=== PATIENT | female | born 1945 | race Caucasian/White ===

== ENCOUNTER 2024-01-07 16:00 | Emergency (ER) | payer MEDICARE, SELFPAY ==
[2024-01-07 16:03] VITALS: BP 127/79
[2024-01-07 16:24] LABS: % Basophils 0.9 % (0-2); % Eosinophils 2.3 % (0-6); % Immature Granulocytes 0.5 % (0-0.5); % Lymphocytes 24.8 % (20.5-51.1); % Monocytes 6.6 % (1.7-9.3); % Neutrophils 64.9 % (42.2-75.2); Absolute Basophils 0.1 10^3/uL (0-0.2); Absolute Eosinophils 0.2 10^3/uL (0-0.7); Absolute Monocytes 0.5 10^3/uL (0.1-0.6); Absolute Neutrophils 5.2 10^3/uL (1.4-6.5); Hematocrit 38.2 % (37.0-47.0); Hemoglobin 13.6 g/dL (12.0-16.0); Mean Corp Hgb Conc. 35.6 g/dL (33.0-37.0); Mean Corpuscular Hgb 30.7 pg (27.0-31.0); Mean Corpuscular Volume 86.2 fL (81.0-99.0); Nucleated Red Blood Cells % 0 %; Red Blood Cell Count 4.43 10^6/uL (4.20-5.40); Red Cell Dist. Width 13.7 % (11.5-14.5)
[2024-01-07 16:52] LABS: ALT (SGPT) 25 U/L (0-35); AST (SGOT) 35 U/L (14-36); Albumin 3.8 g/dl (3.5-5.0); Alkaline Phosphatase 78 U/L (38-126); Blood Urea Nitrogen 12 mg/dl (7-17); Calcium 8.8 mg/dl (8.4-10.2); Carbon Dioxide 22 mmol/L (22-30); Chloride 108 mmol/L (98-107); Glucose 98 mg/dl (70-99); Potassium 3.8 mmol/L (3.5-5.1); Sodium 137 mmol/L (135-145); Total Bilirubin 0.7 mg/dl (0.2-1.3); Total Protein 6.5 g/dl (6.3-8.2); eGFR > 60.00
--- NOTE | 2024-01-07 17:09 | ED.GENMED ---
History of Present Illness
General
Chief Complaint: Headache
Time Seen by Provider: 01/07/24 16:52
Travel History
Have you had any contact with someone who has COVID-19?: No
Do you have any symptoms of coronavirus? Fever > 100 degrees, chills, cough, shortness of breath, sore throat, loss of taste or smell, muscle aches, or headache?: No
History of Present Illness
History of Present Illness:
78-year-old female with history of prior stroke, GERD, and cervical stenosis presents to the emergency department for evaluation of headache and neck pain ongoing for the past 2 weeks. She notes she has had a headache for 2 weeks and saw her
neurologist as an outpatient 4 days ago, was sent for an outpatient MRI that has not yet resulted. The following day she developed right-sided neck discomfort radiating down the right arm. States it is much worse than any prior arthritis that she
has ever had. Denies any recent neck trauma, chiropractic treatments, chest pain, or shortness of breath.
Past History
Past History
ED Past Medical History: CVA, Hypercholesterolemia, NIDDM, Psychiatric (Anxiety) and Other (Chronic back pain)
ED Past Surgical History: Appendectomy, Bowel resection, Brain (Meningioma with radiation), Cholecystectomy, Gynecological and Orthopedic
Social History
Tobacco: Non-smoker
Alcohol: Occasional
Drug: None
Personal:
Living: with family
Family History
Family History: Other (stroke in multiple family members)
Review of Systems
Review of Systems
Allergies reviewed?: Yes
All Other Systems: ROS reviewed and negative except as documented in HPI and ROS
Phy Exam
Physical Exam
Physical Exam:
GEN: Well appearing, NAD, WDWN
HEENT: Oral mucosa moist, no scleral icterus, no nasal congestion
Cardiac: Regular rate
Lung: No respiratory distress, no tachypnea
MSK: No gross deformity or injuries. Normal neck range of motion in all granados, exquisite tenderness to even light palpation of the right cervical paraspinous musculature, no rashes seen
Skin: Good color, no pallor or jaundice, no rashes
Neuro: AO x3; CN II-XII grossly intact. Right upper extremity strength 5 out of 5 in all granados, left upper extremity strength is 4 out of 5 in all granados, this is reportedly baseline for the patient for prior stroke. Bilateral lower extremity
strength and sensation is intact in all granados and symmetric
Psych: Calm, cooperative
Course
Orders/Labs/Results
Orders:
Orders
01/07/24 16:13
Complete Blood Count/With Diff Urgent
Comprehensive Metabolic Panel Urgent
01/07/24 17:01
Gabapentin [Neurontin] 100 mg PO NOW STA
Oxycodone [Roxicodone] 5 mg PO NOW STA
Abnormal Lab Results
01/07/24
16:13
Chloride 108 H mmol/L
(98-107)
01/07/24 16:13
01/07/24 16:13
Vital Signs
Initial and Last Documented VS:
Initial Vital Signs
Temp Pulse Resp BP Pulse Ox
97.9 F 59 16 127/79 97
01/07/24 16:03 01/07/24 16:03 01/07/24 16:03 01/07/24 16:03 01/07/24 16:03
Last Documented Vital Signs
Temp Pulse Resp BP Pulse Ox
97.9 F 55 18 141/81 99
01/07/24 16:03 01/07/24 17:40 01/07/24 17:40 01/07/24 17:40 01/07/24 17:40
MDM/Problems Addressed
MDM/Problems Addressed:
I was able to obtain the results of the patient's brain MRI that showed no acute findings compared to prior comparison MRIs from 2021 in 2014. Unfortunately no neck images were obtained. Patient's current presentation is consistent with cervical
radiculopathy. She has no acute neurologic deficits worrisome for spinal epidural abscess, epidural hematoma, and has no fevers or meningitic symptoms concerning for meningitis. At this time I do not feel there be any benefit to a CT of the
cervical spine given lack of suspicion for fracture. Does not meet emergent criteria for MRI. Recommend outpatient spine specialty follow-up. Her medication therapy is limited due to her intolerance to steroids and current use of antiplatelet
therapy thus we cannot prescribe NSAIDs, will prescribe opiates and gabapentin for pain relief
*Critical Care Note
Total Time (30-74mins, 75-104mins- exclusive of procedures): Not Applicable
ED Attending Note
-
Portions of this chart may have been created with voice recognition software.� Occasional wrong word or��sound alike� substitutions may have occurred due to the inherent limitations of voice recognition software.
Discharge Plan
Departure
Patient Disposition: Home (Routine Discharge)
Date of Disposition: 01/07/24
Time of Disposition: 18:45
Patient with high blood pressure during this ER visit?: No
Discharge Problem:
Cervical radiculopathy
Instructions: Radiculopathy (DC)
Prescriptions:
New
oxycodone 5 mg tablet
5 mg PO Q8H PRN (Reason: Pain) Qty: 10 0RF
gabapentin 300 mg capsule
300 mg PO TID PRN (Reason: pain) Qty: 30 0RF
No Action
clopidogrel [Plavix] 75 mg Tablet
75 mg PO DAILY
omeprazole 20 MG capsule,delayed release(DR/EC)
40 mg PO DAILY
citalopram 20 MG tablet
20 mg PO HS Qty: 90 0RF
acetaminophen [Tylenol Extra Strength] 500 MG tablet
1,000 mg PO Q6HPRN PRN (Reason: MILD PAIN) Qty: 100 0RF
atorvastatin 40 MG tablet
40 mg PO DAILY Qty: 90 0RF
lorazepam 1 MG tablet
1 mg PO HSPRN PRN (Reason: anxiety) 0RF
Referrals:
Neft,Vito E, MD [Family Provider] -
Activity Restrictions/Additional Instructions:
See your business account specialist
Interventions
Interventions:
*Risk Screen - Suicide Last Done: 01/07/24 16:03
*General Assessment Last Done: 01/07/24 16:03
*Neglect/Abuse Screening Last Done: 01/07/24 16:03
*ED COVID-19 Vaccine History Last Done: 01/07/24 16:03
ED- Neurological Assessment Last Done: 01/07/24 17:00
[2024-01-07] MEDS: NEURONTIN 100 MG PO (17:32)
[2024-01-07] MEDS: ROXICODONE 5 MG PO (17:33)
[2024-01-07 17:40] VITALS: BP 141/81
[2024-01-07 19:12] VITALS: BP 133/74
== END 2024-01-07 19:00 | disposition home or self-care (01) ==
LOC: EMR 16:00
PROVIDERS: EMERGENCY PHYSICIAN Emergency Medicine; FAMILY PHYSICIAN Family Medicine
DX: M54.12 Radiculopathy, cervical region (principal); K21.9 Gastro-esophageal reflux disease without esophagitis; E11.9 Type 2 diabetes mellitus without complications; E78.00 Pure hypercholesterolemia, unspecified; F41.9 Anxiety disorder, unspecified; G89.29 Other chronic pain; Z82.3 Family history of stroke; Z86.73 Personal history of transient ischemic attack (TIA), and cerebral infarction without residual deficits; Z90.49 Acquired absence of other specified parts of digestive tract
CPT/HCPCS: 99283; 80053; 85025

== ENCOUNTER → 2024-01-13 09:15 | Outpatient (REF) | payer MEDICARE, SELFPAY | LOC: RAD 09:15 | PROVIDERS: ATTENDING PHYSICIAN Internal Medicine Endocrinology, Diabetes & Metabolism; FAMILY PHYSICIAN Family Medicine | DX: M81.0 Age-related osteoporosis without current pathological fracture (principal) | CPT/HCPCS: 77080 ==

== ENCOUNTER → 2024-04-01 08:09 | Outpatient (REF) | payer MEDICARE, SELFPAY ==
[2024-04-01 10:20] LABS: Intact PTH 79.7 pg/ml (13.6-85.8)
[2024-04-01 11:33] LABS: ALT (SGPT) 26 U/L (0-35); AST (SGOT) 22 U/L (14-36); Albumin 3.6 g/dl (3.5-5.0); Alkaline Phosphatase 64 U/L (38-126); Blood Urea Nitrogen 12 mg/dl (7-17); Calcium 9.3 mg/dl (8.4-10.2); Carbon Dioxide 28 mmol/L (22-30); Chloride 108 mmol/L (98-107); Glucose 81 mg/dl (70-99); Potassium 3.8 mmol/L (3.5-5.1); Sodium 143 mmol/L (135-145); Total Bilirubin 0.6 mg/dl (0.2-1.3); Total Protein 6.1 g/dl (6.3-8.2); eGFR > 60.00
[2024-04-01 12:04] LABS: TSH 5.88 uIU/ml (0.47-4.68)
== END ==
LOC: REG 08:09
PROVIDERS: ATTENDING PHYSICIAN Internal Medicine Endocrinology, Diabetes & Metabolism; FAMILY PHYSICIAN Family Medicine
DX: E04.2 Nontoxic multinodular goiter (principal); M81.0 Age-related osteoporosis without current pathological fracture; R73.03 Prediabetes; E21.0 Primary hyperparathyroidism
CPT/HCPCS: 36415; 80053; 83036; 83970; 84443

== ENCOUNTER → 2024-06-20 11:24 | Outpatient (REF) | payer MEDICARE, SELFPAY | LOC: REG 11:24 | PROVIDERS: ATTENDING PHYSICIAN Internal Medicine Gastroenterology; FAMILY PHYSICIAN Family Medicine | DX: K58.2 Mixed irritable bowel syndrome (principal); R19.7 Diarrhea, unspecified | CPT/HCPCS: 83993; 87045; 87046; 87077; 87324; 87328; 87329; 87427; 87449 ==

== ENCOUNTER → 2024-06-22 09:30 | Outpatient (REF) | payer MEDICARE, SELFPAY | LOC: WDC 09:30 | PROVIDERS: ATTENDING PHYSICIAN Family Medicine | DX: R92.8 Other abnormal and inconclusive findings on diagnostic imaging of breast (principal); D49.0 Neoplasm of unspecified behavior of digestive system; N64.4 Mastodynia; N63.21 Unspecified lump in the left breast, upper outer quadrant | CPT/HCPCS: 76642; 77062; 77066 ==

== ENCOUNTER 2024-08-17 15:13 | Inpatient (IN) | payer MEDICARE, SELFPAY ==
[2024-08-17] VITALS (7 sets, daily range): BP systolic 115–158; BP diastolic 59–95; BMI 26.1
[2024-08-17] MEDS: PLAVIX 75 MG PO (13:51)
[2024-08-17] MEDS: ASPIRIN 325 MG PO (13:51)
[2024-08-17 13:54] LABS: % Basophils 0.3 % (0-2); % Eosinophils 1.2 % (0-6); % Immature Granulocytes 2.8 % (0-0.5); % Lymphocytes 21.3 % (20.5-51.1); % Monocytes 8.3 % (1.7-9.3); % Neutrophils 66.1 % (42.2-75.2); Absolute Eosinophils 0.1 10^3/uL (0-0.7); Absolute Immature Granulocytes 0.3 10^3/uL (0-0.05); Absolute Lymphocytes 2.4 10^3/uL (1.2-3.4); Absolute Monocytes 0.9 10^3/uL (0.1-0.6); Absolute Neutrophils 7.5 10^3/uL (1.4-6.5); Hematocrit 38.2 % (37.0-47.0); Hemoglobin 13.4 g/dL (12.0-16.0); Mean Corp Hgb Conc. 35.1 g/dL (33.0-37.0); Mean Corpuscular Hgb 30.6 pg (27.0-31.0); Mean Corpuscular Volume 87.2 fL (81.0-99.0); Mean Platelet Volume 10.3 fL (7.4-10.4); Nucleated Red Blood Cells % 0 %; Platelet Count 227 10^3/uL (130-400); Red Blood Cell Count 4.38 10^6/uL (4.20-5.40); Red Cell Dist. Width 12.5 % (11.5-14.5); White Blood Cell Count 11.3 10^3/uL (4.8-10.8)
--- NOTE | 2024-08-17 14:08 | ED.CVA ---
History of Present Illness
General
Chief Complaint: CVA/TIA Symptoms
Time Seen by Provider: 08/17/24 13:13
Onset of Stroke Symptoms
Onset of symptoms known: Yes
Date of onset of symptoms: 08/17/24
History of Present Illness
History of Present Illness:
79-year-old female with history of TIA/CVA, depression, anxiety, hyperlipidemia presenting to the emergency department for strokelike symptoms. Patient reports that around 1030 she started to feel warm. Her had left for an appointment and
then he received a call around noon that she was starting to have pain and numbness to the right side of her face, as well as sweating. Patient called the ambulance. On arrival to the hospital, was also reporting that she was having a difficult
time getting her words out. notes that this is sometimes an issue for the patient, has some cognitive problems, however this is worse than usual. Patient denies any weakness or numbness to lower extremities. Denies fever or recent
illness. Denies chest pain or difficulty breathing. Patient is on aspirin and Plavix, no additional blood thinners. No additional symptoms obtained at this time
Past History
Past History
ED Past Medical History: CVA, Hypercholesterolemia, NIDDM, Psychiatric (Anxiety) and Other (Chronic back pain)
ED Past Surgical History: Appendectomy, Bowel resection, Brain (Meningioma with radiation), Cholecystectomy, Gynecological and Orthopedic
Social History
Tobacco: Non-smoker
Alcohol: Occasional
Drug: None
Personal:
Living: with family
Family History
Family History: Other (stroke in multiple family members)
Phy Exam
Physical Exam
Physical Exam:
General: Well-appearing, no clinical signs of dehydration, nontoxic and in no acute distress
HEENT: protecting airway
Neck: appears supple
CV: Normal heart rate, regular rhythm, no evidence of cyanosis
Resp: No accessory muscle use, no increased work of breathing, lungs clear to auscultation bilaterally
Abd: No distention
Extremities: No deformities, no swelling, no erythema
Neuro: alert, slight diminished sensation to the right side of the face. Mild expressive aphasia. Otherwise no focal neurologic deficits.
: deferred
Rectal: deferred
Psych: Normal affect
Skin: Intact
Scores
NIH Stroke Score
Level of Consciousness: 0 - Alert
LOC Questions: 0-Answers both correctly
LOC Commands: 0-Performs both correctly
Best Horizontal Gaze: 0-Normal
Visual Trevino: 0=Normal, no visual loss
Facial Palsy: 0=Normal, symmetrical
Motor - Right Arm: 0=No drift 10 seconds
Motor - Left Arm: 0=No drift 10 seconds
Motor - Right Le-No drift 5 seconds
Motor - Left Le-No drift 5 seconds
Limb Ataxia: 0-Absent
Sensation: 1-Mild loss
Best Language: 1-Mild aphasia
Dysarthria: 0-Normal
Extinction and Inattention: 0-No abnormality
Total Score:: 2
Course
Orders/Labs/Results
Orders:
Orders
08/17/24 13:09
CT HEAD/NECK ANG STROKE ALERT Stat
Reason For Exam: expressive aphasia, numbness/tingling
08/17/24 13:14
CT HEAD STROKE ALERT W/o Cont Urgent
Reason For Exam: aphasia
08/17/24 13:15
Electrocardiogram (*1) Stat
Reason for Study: Other
Other Reason for Exam: neuro symptoms
EKG- Treatment ONCE
08/17/24 13:41
Complete Blood Count/With Diff Urgent
Comprehensive Metabolic Panel Urgent
PTT Urgent
Prothrombin Time Urgent
Troponin I Urgent
08/17/24 13:43
Aspirin 325 mg PO NOW STA
Clopidogrel Bisulfate [Plavix] 75 mg PO NOW STA
Abnormal Lab Results
08/17/24
13:41
WBC 11.3 H 10^3/uL
(4.8-10.8)
Abs Immat Gran (auto) 0.3 H 10^3/uL
(0-0.05)
Absolute Neuts (auto) 7.5 H 10^3/uL
(1.4-6.5)
Absolute Monos (auto) 0.9 H 10^3/uL
(0.1-0.6)
Immature Gran % 2.8 H %
(0-0.5)
08/17/24 13:41
Vital Signs
Initial and Last Documented VS:
Initial Vital Signs
Pulse Resp BP Pulse Ox
24 133/95 97
08/17/24 13:11 08/17/24 13:11 08/17/24 13:11 08/17/24 13:11
Last Documented Vital Signs
Pulse Resp BP Pulse Ox
63 24 133/95 97
08/17/24 13:11 08/17/24 13:11 08/17/24 13:11 08/17/24 13:11
MDM/Problems Addressed
MDM/Problems Addressed:
79-year-old female with history of TIA/CVA presenting for concern of strokelike symptoms, which started prior to arrival. Vital signs are normal.
On exam, patient is well-appearing, no acute distress. Patient immediately assessed upon arrival given presenting complaints, within window for tPA. Patient's NIH stroke scale is a 2 for some mild aphasia and slight decrease sensation to the right
side of the face. Stroke alert was called with plan for neurology assessment. Will obtain CT brain imaging
13:30 -CT brain is negative. Neurology at bedside, does not recommend TNK at this time. Plan for aspirin and Plavix and continued monitoring, MRI and continued stroke workup.
*Critical Care Note
Total Time (30-74mins, 75-104mins- exclusive of procedures): Not Applicable
ED Attending Note
-
Portions of this chart may have been created with voice recognition software.� Occasional wrong word or��sound alike� substitutions may have occurred due to the inherent limitations of voice recognition software.
Discharge Plan
Departure
Prescriptions:
No Action
clopidogrel [Plavix] 75 mg Tablet
75 mg PO DAILY
donepezil 10 mg tablet
10 mg PO DAILY
ciprofloxacin HCl 500 mg tablet
500 mg PO BID
Rx Instructions:
new Rx 08/12/24 x 7 days
omeprazole 40 mg capsule,delayed release(DR/EC)
40 mg PO DAILY
furosemide 20 mg tablet
20 mg PO BID
gabapentin 100 mg capsule
200 mg PO TID
lorazepam 1 mg tablet
1 mg PO BIDPRN PRN (Reason: anxiety)
Patient Comments:
08/17/24: filled #60 tabs on 07/30/24 at [facility]
cyclosporine [Restasis] 0.05 % dropperette
1 drp BOTH EYES BID
mesalamine 0.375 gram capsule,extended release 24hr
0.75 g PO DAILY
Patient Comments:
Prescription is for 4 capsules in the AM; pt reports taking 2 capsules in the AM daily
atorvastatin 40 MG tablet
40 mg PO DAILY
citalopram 20 MG tablet
20 mg PO HS
Referrals:
Vito Hill MD [Family Provider] -
Interventions
Interventions:
*Risk Screen - Suicide Last Done: 08/17/24 14:05
*General Assessment Last Done: 08/17/24 14:05
*Neglect/Abuse Screening Last Done: 08/17/24 14:05
ED- Fall Risk Assessment Last Done: 08/17/24 14:09
*ED COVID-19 Vaccine History Last Done: 08/17/24 14:05
ED- Pulmonary Assessment Last Done: 08/17/24 14:09
ED- Neurological Assessment Last Done: 08/17/24 13:33
ED- Cardiac Assessment Last Done: 08/17/24 14:09
ED Swallowing Screen Last Done: 08/17/24 14:09
Discharge Date and Time
Print Language: FRENCH
[2024-08-17 14:11] LABS: ALT (SGPT) 27 U/L (0-35); AST (SGOT) 22 U/L (14-36); Albumin 3.3 g/dl (3.5-5.0); Alkaline Phosphatase 67 U/L (38-126); Blood Urea Nitrogen 14 mg/dl (7-17); Calcium 8.9 mg/dl (8.4-10.2); Carbon Dioxide 22 mmol/L (22-30); Chloride 102 mmol/L (98-107); Glucose 89 mg/dl (70-99); Potassium 3.5 mmol/L (3.5-5.1); Sodium 135 mmol/L (135-145); Total Bilirubin 0.8 mg/dl (0.2-1.3); Total Protein 5.6 g/dl (6.3-8.2); eGFR > 60.00
[2024-08-17 14:17] LABS: Troponin I < 0.012 ng/ml
[2024-08-17 14:33] LABS: APTT 21.1 Sec (23.4-35.0); INR 1.07; PT 13.7 Sec (11.4-14.6)
--- NOTE | 2024-08-17 14:53 | HPS.HSE ---
Family Physician
-
Family Physician: Vito Hill
Chief Complaint
-
Speech difficulty this morning
History of Present Illness
79 years old female presented with history of speech difficulty. Patient described the episode as right-sided sensation of warm feeling with pain from the right forehead down to the right jaw and the right upper extremity. She felt anxious about
it but reported such feeling to the . That happened around 1030 this morning. The left for an appointment but later patient did not feel comfortable and called medical alert and her . Her left his appointment and
came back home when the EMS where they are. He noticed that his was having word finding difficulty. He followed the ambulance to the hospital, in the hospital he noticed her speech was worse. The warm feeling/sensation had resolved but
reported numbness on the right side of the jaw. In the ER, scan of the head and neck with contrast did not show acute findings. Patient was evaluated by neurologist and told the patient and that she might be having a mini stroke,
recommended dual antiplatelet therapy and MRI study.
Patient was feeling fine when she woke up this morning, at her baseline. reported that her speech difficulty was something abnormal and not her baseline. Patient has history of strokes in the past and follows with Dr. Tobias neurologist.
She has memory impairment and takes Aricept. She uses a walker at home. No history of headache, migraine, fever or loss of consciousness. No history of head trauma or fall. She takes Plavix daily.
Medical History
Past Medical History
Past Medical History: Reports Other (History of strokes, history of meningioma status postradiation, hyperlipidemia, atypical chest pain, vertigo, type 2 diabetes, osteoporosis.)
Past Surgical History: Reports Other (No recent major surgery)
Social History
Tobacco: Non-smoker
Alcohol: None
Drug: None
Personal:
Living: With Family
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
Family History
Family History: Not pertinent
Allergies / Home Medications
Allergies reflects when Allergies were last updated in [employer].
Home Medications with original date entered in [facility]
Allergy/Medication List:
Allergies
Allergy/AdvReac Type Severity Reaction Status Date / Time
hydromorphone HCl Allergy muscle Verified 08/17/24 17:30
[From Dilaudid] paralysis
Sulfa (Sulfonamide Allergy Hives Verified 08/17/24 17:30
Antibiotics)
sulfisoxazole Allergy Hives Verified 08/17/24 17:30
tizanidine Allergy hyperventil Verified 01/07/24 16:05
ating
steroids inhalers Allergy hypervenila Uncoded 08/17/24 17:30
te
Home Medications
clopidogrel 75 mg tablet (Plavix) 75 mg PO DAILY Blood Clot Prevention/Tx 01/10/23
atorvastatin 40 mg tablet 40 mg PO DAILY High Cholesterol 08/17/24
ciprofloxacin HCl 500 mg tablet 500 mg PO BID UTI 08/17/24
citalopram 20 mg tablet 20 mg PO HS depression/anxiety 08/17/24
cyclosporine 0.05 % eye drops in a dropperette (Restasis) 1 drp BOTH EYES BID dry eyes 08/17/24
donepezil 10 mg tablet 10 mg PO DAILY memory/cognition 08/17/24
furosemide 20 mg tablet 20 mg PO BID 08/17/24
gabapentin 100 mg capsule 200 mg PO TID Pain 08/17/24
lorazepam 1 mg tablet 1 mg PO BIDPRN PRN anxiety 08/17/24
mesalamine 0.375 gram capsule,extended release 24 hr 0.75 g PO DAILY GI issues 08/17/24
omeprazole 40 mg capsule,delayed release 40 mg PO DAILY Gastrointestinal Issue 08/17/24
Review of Systems
-
History Source: Patient
A 12 point ROS was completed and negative except as noted: Yes
Constitutional: Denies Fever or Chills
EENT: Denies Sore Throat
Respiratory: Denies Cough
Cardiac: Denies Chest Pain
Abdomen/GI: Denies Abdominal Pain
: Denies Dysuria or Difficulty Voiding
Musculoskeletal: Denies Joint Pain, Joint Swelling or Muscle Stiffness
Skin: Denies Itching
Neurological: Reports Numbness (right jaw); Denies Dizzy or Headache
Endocrine: Denies Temp Intolerance
Hematologic/Lymphatic: Denies Bruising
Psych: Denies Panic Disorder
Physical Exam
Vital Signs
Vital Signs
Temp Pulse Resp BP Pulse Ox
97.9 F 69 16 157/89 97
08/17/24 14:05 08/17/24 14:03 08/17/24 14:09 08/17/24 14:03 08/17/24 14:09
Physical Exam
General: No Apparent Distress and Comfortable
HEENT: Moist mucous membranes and Atraumatic
Respiratory: Clear
Cardiac: S1/S2 and Regular Rhythm
GI: Soft, Non Tender and Non Distended
Genito-urinary: No Cameron
Musculoskeletal: No Clubbing, No Cyanosis and No Edema
Neuro: Awake, Oriented, Slurred Speech (Word finding difficulty ) and Other (She )
Psych: Calm; No Agitated
Laboratory Results
-
08/17/24 13:41
08/17/24 13:41
Laboratory Results
PT 13.7 Sec (11.4-14.6) 08/17/24 13:41
INR 1.07 08/17/24 13:41
APTT 21.1 Sec (23.4-35.0) L 08/17/24 13:41
Total Bilirubin 0.8 mg/dl (0.2-1.3) 08/17/24 13:41
AST 22 U/L (14-36) 08/17/24 13:41
ALT 27 U/L (0-35) 08/17/24 13:41
Alkaline Phosphatase 67 U/L (38-126) 08/17/24 13:41
Troponin I < 0.012 ng/ml 08/17/24 13:41
Impression/Plan
-
79 years old female presented with word finding difficulty that started today. Patient was evaluated by neurologist and recommended dual antiplatelet therapy and stroke workup
# Expressive aphasia with right-sided sensory changes, differential diagnosis include stroke, neurodegenerative, others
Admit the patient to telemetry floor
Start the patient on NIHSS protocol with neurological checks per unit guidelines
Order MRI of the brain
Order echocardiogram of the heart
Check lipid panel
Avoid hypotension, permissive hypertension first 24 hours
DVT prophylaxis
Dual antiplatelet therapy with aspirin and Plavix
Follow-up with neurology recommendations
# History of cognitive impairment, continue with Aricept and home medications. Patient is pleasant and following commands. No agitation noted.
# Mild leukocytosis. No fever, could be reactive, monitor temperature curve repeat CBC
# DVT prophylaxis
Total time spent to see the patient on the floor, examine the patient, review data and lab results, discuss treatment plan with patient, ER doctor, nursing staff around 75 minutes
--- NOTE | 2024-08-17 15:05 | CON.NEURO4 ---
Documented by User: Susan Fuller NP 08/17/24 15:41
Consultation - Neurology 4
-
CONSULTING PHYSICIAN: Bennie Dent MD
REFERRING PHYSICIAN: ER/Kanika Nava
DICTATED BY: JACOBY Mayorga
DATE/TIME OF REQUEST: 08/17/24
DATE/TIME OF CONSULTATION: 08/17/24
Reason for Consultation: Stroke Alert
History of Present Illness:
This is a 79-year-old right-handed female who has presented to the hospital with report of expressive aphasia, R jaw/arm pain, R facial numbness, and transient anterior head pain starting at 1100 today. Patient has been previously evaluated by our
Neurology service on in 01/2021 for gait ataxia. She is followed as an outpatient by Neurology Dr. Tobias for cognitive impairment, headaches, and history of CVA and TIAs.
'From previous evaluation by Dr. Noyola on 01/16/21:
Patient presented to this hospital's emergency department due to new worsening of gait. She reported that she attempted to walk toward her bathroom this morning and instead of being able to walk forwards walk sideways. The patient also suggest that
she has been having gait difficulties since 2009 for which she's been followed by a local neurologist. Since 2012 the patient has been utilizing a cane for ambulation. Patient began wheelchair use for long-excursions began 6 years ago (2013). The
patient describes her usual gait as being off balance and in the past 14 days, has been walking into tolbert.
Patient was previously provided a diagnosis of 'ataxic gait,' received PT to treat, then stopped PT in 08/2020 due to the Pandemic.
Walker use suggested in fall 2019. Patient fell in 07/2020, went to local ([facility]. Was told she had 'small arteries.'
Patient does admit to episodic dizziness which at times is due to head turning, chronic in nature
'I'm supposed to down to [place] to meet with neurosurgery because two places the spine... is touching the cord...'
Neuropsychological testing was ordered by her local neurologist in 2018 which suggested mild cognitive impairment. Patient subsequently reports having mental decline in past few days in form of visual mis-recognition of snow on ground.
Additionally, the patient reports a long-standing tremor in bilateral hands which has been reducing her quality of life and affecting her ability to paint.'
Patient and her report that she woke up at 0800 today (08/17/24) in her usual state. Around 1030 she reports the she started to feel 'warm.' Around 1100 she notes that she developed a pain across the top of her head, and then in her right
jaw and right arm. Additionally her R face felt numb and she became diaphoretic. She called her at 1200 who noted her chronic word finding difficulty sounded worse than previous episodes, and he told her to call 911. CT Head, CTA head/neck
were obtained on arrival and are negative for any acute findings. NIHSS is 3 for mild aphasia, mild R face sensory loss, mild and sensory inattention. She was not deemed a candidate for IV TNK due to low NIHSS, benefits now outweighing risks. No LVO
for IAT. Patient is taking Plavix 75mg daily and denies missing any doses. Patient's notes that she has had similar episodes in the past but her symptoms were less severe. She currently denies any headache, dizziness, vision changes,
weakness, nausea, chest pain, palpitations, and shortness of breath.
Past Medical History: CVA in the past? No brain imaging at this facility that demonstrates this, multiple TIAs, cognitive impairment, meningioma, anxiety, depression, HLD, NIDDM, chronic back pain, GERD, cervical stenosis, headaches
Surgical History: C4-C6 posterior decompression/fusion 2020, appendectomy, bowel resection, meningioma radiation, cholecystectomy, gynecological and orthopedic
Family History: Sister- migraines, stroke. Paternal grandfather and aunt- stroke.
Social History: Denies illicit drug use. Occasional alcohol. Former smoker.
Allergies: Hydromorphone, sulfa, tizanidine, steroids.
Home Medications: See below.
Review of Symptoms:
Patient denies any fever, headache, chest pain, shortness of breath, GI or symptoms.
�Per the HPI.�All systems are reviewed negative except above.
Physical Exam:
The patient is afebrile, abdomen is nondistended, breathing is unlabored, skin is warm and dry, no edema. Patient very tearful, tremulous.
NIH Stroke Scale:
I performed the NIH stroke scale on the patient on 08/17/24 at 1330. The patient scored 3 points on the NIH stroke scale assessment, which were assigned as follows: See below.
Neurologic Examination:
The patient is awake, alert and oriented x 3, tearful. She is able to follow commands and answer questions appropriately. There is mild aphasia. No dysarthria. On cranial nerve assessment, pupils are 3 mm bilateral, round and reactive to light and
accommodation. Visual trevino are full. Extraocular movements are intact. Facial sensations are diminished on the right, there is no facial asymmetry. Hearing is intact bilaterally to normal conversation volume. Tongue palate and uvula are midline.
Sternocleidomastoid strengths are full bilaterally. Motor strengths are 5/5 bilateral upper and lower extremities on medical research Rincon scale. There is no drift or involuntary movement noted. Deep tendon reflexes are 2+ bilateral upper and
lower extremities and Babinski is absent bilaterally. There was sensory extinction noted on double simultaneous stimulation in the R face and arm. Coordination is intact by finger to nose bilaterally.
Lab Results: See below.
Neuro Imaging:
1. CT Head 08/17/24: No acute intracranial abnormalities. Findings compatible with diffuse cortical atrophy with nonspecific white matter changes as described above. ASPECTS score: 10.
2. CTA Head/Neck 08/17/24: Minor atherosclerotic plaque at the left carotid bifurcation. No hemodynamically significant carotid arterial stenosis bilaterally. No findings to suggest internal carotid artery or vertebral artery dissection bilaterally.
No significant proximal intracranial arterial stenosis.
Differentials for the patient's presentation include:
1. Expressive aphasia and right-sided sensory changes; etiology possible complicated migraine, vascular, vs neurodegenerative.
2. Cognitive impairment for 10+ years.
3. History of similar events with less severe symptoms.
Patient has the following risk factors for their symptoms: Hx TIA/CVA?, cognitive impairment, headache
IV Tenecteplase/IAT candidacy: She was not deemed a candidate for IV TNK due to low NIHSS, benefits now outweighing risks. No LVO for IAT.
Recommendations:
-Continue DAPT with aspirin 81mg and Plavix 75mg daily for 21 days.
-Goal normotension.
-MRI brain noncontrast pending.
-NIHSS and neurological checks per unit guidelines.
-Provide patient with a stroke education packet.
-LDL goal <70. Lipid panel pending. Continue home atorvastatin 40mg daily.
-Goal normoglycemia, hbA1c pending.
-PT/OT/ST evaluations.
-DVT prophylaxis.
-Needs outpatient neuropsychological testing.
-Will follow pending results.
Discussed patient care with: Dr. Dent, Dr. Boudreaux, patient, patient's spouse
Vital Signs and Labs
-
Vital Signs and Labs:
Vital Signs
Temp Pulse Resp BP Pulse Ox
97.9 F 64 15 146/77 97
08/17/24 14:05 08/17/24 15:00 08/17/24 15:00 08/17/24 15:00 08/17/24 15:00
Lab Results
08/17/24 13:41
08/17/24 13:41
PT 13.7 Sec (11.4-14.6) 08/17/24 13:41
INR 1.07 08/17/24 13:41
APTT 21.1 Sec (23.4-35.0) L 08/17/24 13:41
Sodium 135 mmol/L (135-145) 08/17/24 13:41
Potassium 3.5 mmol/L (3.5-5.1) 08/17/24 13:41
BUN 14 mg/dl (7-17) 08/17/24 13:41
Glucose 89 mg/dl (70-99) 08/17/24 13:41
Calcium 8.9 mg/dl (8.4-10.2) 08/17/24 13:41
Medications
-
Home Medications
�Medication �Instructions �Recorded
clopidogrel 75 mg tablet (Plavix) 75 mg PO DAILY Blood Clot 01/10/23
Prevention/Tx
atorvastatin 40 mg tablet 40 mg PO DAILY High Cholesterol 08/17/24
ciprofloxacin HCl 500 mg tablet 500 mg PO BID UTI 08/17/24
citalopram 20 mg tablet 20 mg PO HS depression/anxiety 08/17/24
cyclosporine 0.05 % eye drops in a 1 drp BOTH EYES BID dry eyes 08/17/24
dropperette (Restasis)
donepezil 10 mg tablet 10 mg PO DAILY memory/cognition 08/17/24
furosemide 20 mg tablet 20 mg PO BID 08/17/24
gabapentin 100 mg capsule 200 mg PO TID Pain 08/17/24
lorazepam 1 mg tablet 1 mg PO BIDPRN PRN anxiety 08/17/24
mesalamine 0.375 gram 0.75 g PO DAILY GI issues 08/17/24
capsule,extended release 24 hr
omeprazole 40 mg capsule,delayed 40 mg PO DAILY Gastrointestinal 08/17/24
release Issue
NIH Stroke Score
Subsequent NIH Scale
Date of Subsequent NIH Scale: 08/17/24
Time of Subsequent NIH Scale: 13:30
NIH Stroke Score
Level of Consciousness: 0 - Alert
LOC Questions: 0-Answers both correctly
LOC Commands: 0-Performs both correctly
Best Horizontal Gaze: 0-Normal
Visual Trevino: 0=Normal, no visual loss
Facial Palsy: 0=Normal, symmetrical
Motor - Right Arm: 0=No drift 10 seconds
Motor - Left Arm: 0=No drift 10 seconds
Motor - Right Le-No drift 5 seconds
Motor - Left Le-No drift 5 seconds
Limb Ataxia: 0-Absent
Sensation: 1-Mild loss
Best Language: 1-Mild aphasia
Dysarthria: 0-Normal
Extinction and Inattention: 1-Sensory inattention
Total Score:: 3

Documented by User: Bennie Dent MD 08/17/24 22:49
Consultation - Neurology 4
-
CONSULTING PHYSICIAN: Bennie Dent MD
REFERRING PHYSICIAN: ER/Kanika Nava
DICTATED BY: JACOBY Mayorga
DATE/TIME OF REQUEST: 08/17/24
DATE/TIME OF CONSULTATION: 08/17/24
Reason for Consultation: Stroke Alert
History of Present Illness:
This is a 79-year-old right-handed female who has presented to the hospital with report of expressive aphasia, R jaw/arm pain, R facial numbness, and transient anterior head pain starting at 1100 today. Patient has been previously evaluated by our
Neurology service on in 01/2021 for gait ataxia. She is followed as an outpatient by Neurology Dr. Tobias for cognitive impairment, headaches, and history of CVA and TIAs.
'From previous evaluation by Dr. Noyola on 01/16/21:
Patient presented to this hospital's emergency department due to new worsening of gait. She reported that she attempted to walk toward her bathroom this morning and instead of being able to walk forwards walk sideways. The patient also suggest that
she has been having gait difficulties since 2009 for which she's been followed by a local neurologist. Since 2012 the patient has been utilizing a cane for ambulation. Patient began wheelchair use for long-excursions began 6 years ago (2013). The
patient describes her usual gait as being off balance and in the past 14 days, has been walking into [place]lbert.
Patient was previously provided a diagnosis of 'ataxic gait,' received PT to treat, then stopped PT in 08/2020 due to the Pandemic.
Walker use suggested in fall 2019. Patient fell in 07/2020, went to local ([facility]. Was told she had 'small arteries.'
Patient does admit to episodic dizziness which at times is due to head turning, chronic in nature
'I'm supposed to down to [place] to meet with neurosurgery because two places the spine... is touching the cord...'
Neuropsychological testing was ordered by her local neurologist in 2018 which suggested mild cognitive impairment. Patient subsequently reports having mental decline in past few days in form of visual mis-recognition of snow on ground.
Additionally, the patient reports a long-standing tremor in bilateral hands which has been reducing her quality of life and affecting her ability to paint.'
Patient and her report that she woke up at 0800 today (08/17/24) in her usual state. Around 1030 she reports the she started to feel 'warm.' Around 1100 she notes that she developed a pain across the top of her head, and then in her right
jaw and right arm. Additionally her R face felt numb and she became diaphoretic. She called her at 1200 who noted her chronic word finding difficulty sounded worse than previous episodes, and he told her to call 911. CT Head, CTA head/neck
were obtained on arrival and are negative for any acute findings. NIHSS is 3 for mild aphasia, mild R face sensory loss, mild and sensory inattention. She was not deemed a candidate for IV TNK due to low NIHSS, benefits now outweighing risks. No LVO
for IAT. Patient is taking Plavix 75mg daily and denies missing any doses. Patient's notes that she has had similar episodes in the past but her symptoms were less severe. She currently denies any headache, dizziness, vision changes,
weakness, nausea, chest pain, palpitations, and shortness of breath.
Past Medical History: CVA , multiple TIAs, cognitive impairment, meningioma, anxiety, depression, HLD, NIDDM, chronic back pain, GERD, cervical stenosis, headaches
Surgical History: C4-C6 posterior decompression/fusion 2020, appendectomy, bowel resection, meningioma radiation, cholecystectomy, gynecological and orthopedic
Family History: Sister- migraines, stroke. Paternal grandfather and aunt- stroke.
Social History: Denies illicit drug use. Occasional alcohol. Former smoker.
Allergies: Hydromorphone, sulfa, tizanidine, steroids.
Home Medications: See below.
Review of Symptoms:
Patient denies any fever, headache, chest pain, shortness of breath, GI or symptoms.
�Per the HPI.�All systems are reviewed negative except above.
Physical Exam:
The patient is afebrile, abdomen is nondistended, breathing is unlabored, skin is warm and dry, no edema. Patient very tearful, tremulous.
NIH Stroke Scale:
I performed the NIH stroke scale on the patient on 08/17/24 at 1330. The patient scored 3 points on the NIH stroke scale assessment, which were assigned as follows: See below.
Neurologic Examination:
The patient is awake, alert and oriented x 3, tearful. She is able to follow commands and answer questions appropriately. There is mild aphasia. No dysarthria. On cranial nerve assessment, pupils are 3 mm bilateral, round and reactive to light and
accommodation. Visual trevino are full. Extraocular movements are intact. Facial sensations are diminished on the right, there is no facial asymmetry. Hearing is intact bilaterally to normal conversation volume. Tongue palate and uvula are midline.
Sternocleidomastoid strengths are full bilaterally. Motor strengths are 5/5 bilateral upper and lower extremities on medical research Rincon scale. There is no drift or involuntary movement noted. Deep tendon reflexes are 2+ bilateral upper and
lower extremities and Babinski is absent bilaterally. There was sensory extinction noted on double simultaneous stimulation in the R face and arm. Coordination is intact by finger to nose bilaterally.
Lab Results: See below.
Neuro Imaging:
1. CT Head 08/17/24: No acute intracranial abnormalities. Findings compatible with diffuse cortical atrophy with nonspecific white matter changes as described above. ASPECTS score: 10.
2. CTA Head/Neck 08/17/24: Minor atherosclerotic plaque at the left carotid bifurcation. No hemodynamically significant carotid arterial stenosis bilaterally. No findings to suggest internal carotid artery or vertebral artery dissection bilaterally.
No significant proximal intracranial arterial stenosis.
Differentials for the patient's presentation include:
1. Expressive aphasia and right-sided sensory changes; etiology possible complicated migraine, vascular, vs neurodegenerative.
2. Cognitive impairment for 10+ years.
3. History of similar events with less severe symptoms.
Patient has the following risk factors for their symptoms: Hx TIA/CVA?, cognitive impairment, headache
IV Tenecteplase/IAT candidacy: She was not deemed a candidate for IV TNK due to low NIHSS, benefits now outweighing risks. No LVO for IAT.
Recommendations:
-Continue DAPT with aspirin 81mg and Plavix 75mg daily for 21 days.
-Goal normotension.
-MRI brain noncontrast pending.
-NIHSS and neurological checks per unit guidelines.
-Provide patient with a stroke education packet.
-LDL goal <70. Lipid panel pending. Continue home atorvastatin 40mg daily.
-Goal normoglycemia, hbA1c pending.
-PT/OT/ST evaluations.
-DVT prophylaxis.
-Needs outpatient neuropsychological testing.
-Will follow pending results.
Discussed patient care with: Dr. Dent, Dr. Boudreaux, patient, patient's spouse
Neurology Attending Note:
CC: Speech impediment
HPI: 79 yr. 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
GERD, headaches who had been in her USOH this morning till 1030A when she experienced word finding issues facial numbness and left sided numbness. Symptoms varied in severity. She called 911 and informed them she was having difficulty speaking. Brianna
was transferred to ED. On evaluation her speech pattern was bizarre. No motor or sensory deficits.
Neuro exam: Pat is anxious alert oriented x 3. Speech is limited can follow commands. CN exam is Nonfocal. Motor exam: Minimal left sided weakness. Reflexes trace.
A/P: TIA
Anxiety attack
Keep MAP 100
Speech therapy
Avoid fluoroquinolones: Cipro
MRI head
Pat may be discharged home if medically stable in AM
NIH Stroke Score
NIH Stroke Score
Total Score:: 3
[2024-08-17 16:32] LABS: HDL Cholesterol 50 mg/dl; LDL Cholesterol, Calculated 50 mg/dl; Total Cholesterol 114 mg/dl (50-199); Triglyceride 71 mg/dl (10-149); Very Low Density Lipoprotein 14 mg/dl (0-30)
[2024-08-17 17:20] LABS: TSH Reflex To Free T4 3.81 uIU/ml (0.47-4.68)
[2024-08-17] MEDS: NEURONTIN 200 MG PO ×2 (19:16→22:27)
[2024-08-17] MEDS: LASIX 20 MG PO (19:16)
[2024-08-17 19:27] LABS: Folate 3.2 ng/ml (2.76-20); Vitamin B12 243 pg/ml (239-931)
[2024-08-17] MEDS: HEPARIN 5000 UNITS SC (19:59)
[2024-08-17] MEDS: RESTASIS 0.05% OPHTHALMIC EMULSION 1 DROPS BOTH EYES (19:59)
[2024-08-17] MEDS: CELEXA 20 MG PO (22:27)
[2024-08-18] VITALS (7 sets, daily range): BP systolic 102–130; BP diastolic 47–79; PULSE 62–65; O2SAT 95
--- NOTE | 2024-08-18 00:15 | PTCARENOTE ---
Pt ran call [facility] notifying staff of new onset headache and R sided facial pain. This RN was notified of change in status. Performed NIH increasing weakness on L upper and lower extremity. NIH changed from 3 to 5. Rapid and stroke alert called. Marge
JACOBY Nath at bedside and pt transported to CT.
[2024-08-18 00:16] LABS: Glucose - Point of Care 103 mg/dl (70-99)
--- NOTE | 2024-08-18 01:26 | W.PN.UPDATE ---
Update Note
Progress Note Update
Responded to a rapid response called by nursing due to NIH change of this patient. CT head per protocol done with no new findings. Neurology service updated by primary nurse and no new orders given.
[2024-08-18 07:57] LABS: Glycohemoglobin (HgbA1c) 5.8 % (4.0-5.6)
--- NOTE | 2024-08-18 08:34 | W.PN.HOSP.TC ---
Today's Communication/Plan
-
Ativan before sleep
Continue with dual antiplatelet therapy
Continue with heart monitoring
Held AM Lasix to avoid hypotension
Assessment / Plan
Assessment / Plan
Physical Exam
General: No Apparent Distress and Comfortable
HEENT: Moist mucous membranes and Atraumatic
Respiratory: Clear
Cardiac: S1/S2 and Regular Rhythm
GI: Soft, Non Tender and Non Distended
Genito-urinary: No Cameron
Musculoskeletal: No Clubbing, No Cyanosis and No Edema
Neuro: Awake, Oriented, Slurred Speech (Less Word finding difficulty ) .
Psych: Calm; No Agitated
79 years old female presented with word finding difficulty that started today. Patient was evaluated by neurologist and recommended dual antiplatelet therapy and stroke workup
# Expressive aphasia with right-sided sensory changes, differential diagnosis include stroke, neurodegenerative, others
Her speech feels better than yesterday, she reports resolution of face numbness. Per family: she is approaching her baseline, less words finding difficulty
MRI brain no acute stroke
Repeat CT study at night after night team noticed speech problems, showed no changes
Could be mini-stroke
I d/w Dr Bennie Dent, he felt it was unlikely CVA but wanted to c/w dual antiplt therapy to treat as TIA/Ministroke.
c/w Statin therapy
Avoid hypotension, permissive hypertension first 24 hours
DVT prophylaxis
LDL 50
Follow-up with neurology recommendations
# Runs of Atrial tachycardia
I reviewed rhythm with two vegetable washing machine operator, not A fib
Pt feels palpitations but they are short runs and infrequent. Pt reports Hx of bradycardia in past, will avoid BB, she will f/w Dr Don, I will heart monitoring for total 48 hours.
# Mild essential hypertension, will continue low-dose Lasix with holding parameters
# History of cognitive impairment, continue with Aricept and home medications. Patient is pleasant and following commands. No agitation noted.
# History of insomnia and anxiety. Patient wanted Ativan before sleep, will make changes
# Mild leukocytosis. No fever, could be reactive, monitor temperature curve repeat CBC
# DVT prophylaxis
Total time spent to see the patient on the floor, examine the patient, review data and lab results, discuss treatment plan with patient, neurologist, nursing staff around 55 minutes
Anticipated Discharge: Within 24 hours
Subjective/Interval History
-
Date of Service: August 18, 2024
No sob
No headache
No chest pain
Less trouble talking today
Objective Data
-
Vital Signs:
Vital Signs
Temp Pulse Resp BP Pulse Ox
98.0 F 59 17 108/60 94
08/18/24 07:40 08/18/24 07:40 08/18/24 07:40 08/18/24 07:40 08/18/24 07:40
I&O
08/17/24 08/18/24 08/19/24
06:59 06:59 06:59
Intake Total 240 / 240
Balance 240 / 240
[2024-08-18] MEDS: PENTASA 750 MG PO (09:07)
[2024-08-18] MEDS: NEURONTIN 200 MG PO ×3 (09:07→21:35)
[2024-08-18] MEDS: ARICEPT 10 MG PO (09:07)
[2024-08-18] MEDS: PLAVIX 75 MG PO (09:07)
[2024-08-18] MEDS: PROTONIX 40 MG PO (09:07)
[2024-08-18] MEDS: LOW STRENGTH ASPIRIN 81 MG PO (09:08)
[2024-08-18] MEDS: LIPITOR 40 MG PO (09:08)
[2024-08-18] MEDS: RESTASIS 0.05% OPHTHALMIC EMULSION 1 DROPS BOTH EYES ×2 (09:08→21:34)
[2024-08-18] MEDS: HEPARIN 5000 UNITS SC ×2 (09:08→21:34)
[2024-08-18] MEDS: LASIX PO (10:48)
--- NOTE | 2024-08-18 11:18 | PTOTSP ---
ST Acute Care Evaluations
Baseline Information (Patient, , Daughter):
- Pt was diagnosed with a mild neurocognitive impairment in 2018. She is re-evaluated by a neuropsychologist yearly. As of this year, she is still in the mild range, but her family perceives her condition as having progressed. As of more recently,
the progression of her illness has reportedly slowed since the start of the Aricept. Pt's cognitive linguistic presentation (i.e., word finding issues) wax and wane on a day to day basis.
- Pt does not drive, per neurologist recommendations.
- Pt goes grocery shopping independently.
- Pt will occasionally bake independently.
- Pt manages her own medications independently but needs frequent reminders to take them.
- All major cooking and finances managed by .
- All major cleaning managed by recorder helper seismograph.
- Pt admits she has a hearing impairment and was recommended for hearing aids but has not pursued them.
- Pt wears bifocals.
- Pt has no hx of LEGAL MANAGER services.
- Per pt's family, at baseline, pt's speech is usually clear, intelligible, and perhaps a slight slower than others with occasional pauses/breaks due to gathering thoughts or word-finding difficulties (no groping, though).
- Per pt's family, at baseline, pt often needs complex information repeated, simplified, or rephrased, and will sometimes admit, 'I'm a little mixed up right now' (e.g. at the store, at the doctor). Pt needs information told to her one thing at a
time, otherwise she has a hard time with recall of that information.
- Per pt's family, at baseline, pt is able to express almost everything she wants to say with the exception of occasional word-finding difficutlies. Pt becomes frustrated during these instances.
- Per pt's family, at baseline, pt occasionally exhibits some impaired judgment and reduced filter with regards to what she says to others.
- Per pt's family, pt's communication was significantly impaired yesterday, has slightly improved today, but is no where near her baseline.
Findings:
Pt currently presents with clinical signs of mild pharyngeal dysphagia characterized by occasional cough following ingestion of liquids.
Pt also currently presents with a moderately-severe receptive and expressive language deficit as well as moderate motor speech impairment (apraxia vs neurogenic fluency disorder), which are distinctly different from pt's baseline mild cognitive
impairment.
Recommendations:
- Continue with regular solids, thin liquids, meds as tolerated.
- General aspiration precautions.
- LEGAL MANAGER to f/u re: diet tolerance and to determine if pt would benefit from an instrumental swallow study.
- LEGAL MANAGER to f/u to continue to evaluate and tx pt's receptive and expressive language deficits as well as motor speech deficits.
- Pt would continue to benefit from LEGAL MANAGER services upon d/c at the home health or OP level of care.
--- NOTE | 2024-08-18 11:27 | W.PN.NEURO.1 ---
Today's Communication / Plan
-
Dual antiplatelet
Ativan 1 mg BID
Neuro Assessment/Plan
Assessment
Mrs Abreu has speech impediment with no evidence of acute disease on MRI
Plan
Continue dual antiplatelet therapy
Ativan 1 mg BID
Subjective/Objective
Subjective Data
Date of Service: August 18, 2024
Brianna continues to have speech hesistancy
Objective Data
Vital Signs
Temp Pulse Resp BP Pulse Ox
36.8 C 64 17 115/60 95
08/18/24 11:10 08/18/24 11:10 08/18/24 11:10 08/18/24 11:10 08/18/24 11:10
Lab Results
08/17/24 13:41
08/17/24 13:41
PT 13.7 Sec (11.4-14.6) 08/17/24 13:41
INR 1.07 08/17/24 13:41
APTT 21.1 Sec (23.4-35.0) L 08/17/24 13:41
Sodium 135 mmol/L (135-145) 08/17/24 13:41
Potassium 3.5 mmol/L (3.5-5.1) 08/17/24 13:41
BUN 14 mg/dl (7-17) 08/17/24 13:41
Glucose 89 mg/dl (70-99) 08/17/24 13:41
Calcium 8.9 mg/dl (8.4-10.2) 08/17/24 13:41
LDL Cholesterol, Calc 50 mg/dl 08/17/24 13:41
Vitamin B12 Cancelled 08/17/24 22:45
Patient Allergies
ciprofloxacin Allergy (Intermediate, Verified 08/18/24 11:27)
Unknown
hydromorphone HCl [From Dilaudid] Allergy (Verified 08/17/24 17:30)
muscle paralysis
Sulfa (Sulfonamide Antibiotics) Allergy (Verified 08/17/24 17:30)
Hives
sulfisoxazole Allergy (Verified 08/17/24 17:30)
Hives
tizanidine Allergy (Verified 01/07/24 16:05)
hyperventilating
steroids inhalers Allergy (Uncoded 08/17/24 17:30)
hypervenilate
Data Reviewed
-
MRI Head: Image Reviewed (MRI Brain: No acute infarctions. Chronic small vessel disease)
[2024-08-18] MEDS: LASIX 20 MG PO (17:08)
[2024-08-18] MEDS: CELEXA 20 MG PO (21:35)
[2024-08-18] MEDS: ATIVAN 1 MG PO (21:35)
[2024-08-19 04:06] VITALS: BP 100/47
--- NOTE | 2024-08-19 04:46 | DOWNTIME ---
There was a [email or web address] Textbook Time Client [employer] Downtime on 08/19/2024 from 0100 to 08/19/2024 at 0355. Downtime documentation of patient's care, including medication administrations, has been reconciled in the electronic record per guidelines. Refer to the
patient's paper chart under the miscellaneous tab to see printed paper medication records and downtime forms.
[2024-08-19 07:01] LABS: Hematocrit 42.2 % (37.0-47.0); Hemoglobin 14.6 g/dL (12.0-16.0); Mean Corp Hgb Conc. 34.6 g/dL (33.0-37.0); Mean Corpuscular Hgb 31.6 pg (27.0-31.0); Mean Corpuscular Volume 91.3 fL (81.0-99.0); Mean Platelet Volume 10.3 fL (7.4-10.4); Platelet Count 211 10^3/uL (130-400); Red Blood Cell Count 4.62 10^6/uL (4.20-5.40); Red Cell Dist. Width 12.9 % (11.5-14.5); White Blood Cell Count 9.3 10^3/uL (4.8-10.8)
[2024-08-19 07:29] LABS: Blood Urea Nitrogen 22 mg/dl (7-17); Calcium 8.9 mg/dl (8.4-10.2); Carbon Dioxide 29 mmol/L (22-30); Chloride 103 mmol/L (98-107); Estimated Creatinine Clearance 47 ml/min; Glucose 99 mg/dl (70-99); Sodium 141 mmol/L (135-145); eGFR > 60.00
[2024-08-19] MEDS: PENTASA 750 MG PO (08:13)
[2024-08-19] MEDS: ARICEPT 10 MG PO (08:14)
[2024-08-19] MEDS: LIPITOR 40 MG PO (08:14)
[2024-08-19] MEDS: RESTASIS 0.05% OPHTHALMIC EMULSION 1 DROPS BOTH EYES (08:14)
[2024-08-19] MEDS: NEURONTIN 200 MG PO (08:15)
[2024-08-19] MEDS: PLAVIX 75 MG PO (08:15)
[2024-08-19] MEDS: LOW STRENGTH ASPIRIN 81 MG PO (08:15)
[2024-08-19] MEDS: HEPARIN 5000 UNITS SC (08:18)
[2024-08-19] MEDS: PROTONIX 40 MG PO (08:18)
[2024-08-19] MEDS: LASIX PO (08:19)
[2024-08-19 08:21] VITALS: BP 102/55
[2024-08-19 10:41] VITALS: BP 114/64
--- NOTE | 2024-08-19 10:44 | W.PN.HOSP.TC ---
Today's Communication/Plan
-
DC today
Assessment / Plan
Assessment / Plan
Physical Exam
General: No Apparent Distress and Comfortable
HEENT: Moist mucous membranes and Atraumatic
Respiratory: Clear
Cardiac: S1/S2 and Regular Rhythm
GI: Soft, Non Tender and Non Distended
Genito-urinary: No Cameron
Musculoskeletal: No Clubbing, No Cyanosis and No Edema
Neuro: Awake, Oriented, no Slurred Speech (speech back to baseline ) .
Psych: Calm; No Agitated
79 years old female presented with word finding difficulty that started today. Patient was evaluated by neurologist and recommended dual antiplatelet therapy and stroke workup
# Expressive aphasia with right-sided sensory changes, differential diagnosis include stroke, neurodegenerative, others
Her speech feels better than yesterday, she reports resolution of face numbness. Per family: she is approaching her baseline, less words finding difficulty
MRI brain no acute stroke
Repeat CT study at night after night team noticed speech problems, showed no changes
Could be mini-stroke
I d/w Dr Bennie Dent, he felt it was unlikely CVA but wanted to c/w dual antiplt therapy to treat as TIA/Ministroke.
c/w Statin therapy
Avoid hypotension, permissive hypertension first 24 hours
DVT prophylaxis
LDL 50
Follow-up with neurology recommendations
I also updated he neurologist directly on phone Dr Christiano Tobias.
# Runs of Atrial tachycardia
Echo and EKG looked normal.
I reviewed rhythm with two social work coordinator, not A fib
Pt feels palpitations but they are short runs and infrequent. Pt reports Hx of bradycardia in past, will avoid BB due to low hooper rate ( 48-60) , she will f/w Dr Don, I also updated Dr Don.
# Mild essential hypertension, continue low-dose Lasix.
# History of cognitive impairment, continue with Aricept and home medications. Patient is pleasant and following commands. No agitation noted.
# History of insomnia and anxiety. Patient wanted Ativan before sleep, will make changes
# Mild leukocytosis. No fever, could be reactive, monitor temperature curve repeat CBC
# DVT prophylaxis
Total discharge time spent to see the patient on the floor, examine the patient, review data and lab results, discuss discharge plan with patient and her , Dr Dent, her primary social work coordinator and neurologist, nursing staff around 67 minutes
Anticipated Discharge: Today
Subjective/Interval History
-
Date of Service: August 19, 2024
No headache
No sob
No chest pain
Objective Data
-
Labs:
Laboratory Results
08/19/24
06:51
WBC 9.3
Hgb 14.6
Hct 42.2
Plt Count 211
Sodium 141
Potassium 4.0
Chloride 103
Carbon Dioxide 29
BUN 22 H
Creatinine 0.8
Glucose 99
Calcium 8.9
Vital Signs:
Vital Signs
Temp Pulse Resp BP Pulse Ox
98.3 F 68 18 114/64 99
08/19/24 10:41 08/19/24 10:41 08/19/24 10:41 08/19/24 10:41 08/19/24 10:41
I&O
08/18/24 08/19/24 08/20/24
06:59 06:59 06:59
Intake Total 240 / 240 600 / 600
Balance 240 / 240 600 / 600
--- NOTE | 2024-08-19 13:01 | W.DCSUMMARY ---
Discharge Summary
Discharge Data
Date of Admission: 08/17/24
Date of Discharge: 08/19/24
-
Pending Results: No
Hospital Course
79 years old female presented with sudden onset of right-sided numbness and altered sensation from her head that went down to right upper extremity followed by word finding difficulty that progressed to dysarthria over few hours time. She presented
to the hospital. Initial CT study with contrast did not show acute stroke. Patient was taking Plavix at home. Patient was evaluated by neurologist. Did not recommend TNK, recommended dual antiplatelet therapy and MRI study. MRI of the brain did
not show acute stroke. Speech started to improve gradually and returned to baseline per patient and her family. LDL was 50. Patient was maintained on statin therapy. She was allowed to have permissive hypertension for 24 hours. Patient was
evaluated by speech/PT/OT. Recommended outpatient therapy. Cardiac monitoring revealed in the frequent episodes of atrial tachycardia. Patient reported palpitation feeling at times. She did not have hypotension. Echocardiogram showed normal
left ventricular function LVEF 55-60% with mild TR,MR. EKG showed normal sinus rhythm. Neurologist Dr. Dent felt that episode could be anxiety related and unlikely CVA and recommended dual antiplatelet therapy. Discussed options with the family
and the patient and recommended to follow-up with her primary neurologist. Primary neurologist Dr. Christiano Tobias was updated over the phone. Patient follows with Dr. Don for cardiology. He was also updated. Patient was advised to call cardiology
and neurology offices for appointments. Patient remained hemodynamically stable and was discharged in a stable condition.
Discharge Plan
-
Patient Disposition: Home with Home Care
Discharge Diagnosis/Procedures: Transiet word finding difficulty/ dysarthria with right sided facial numbness, likely consistent with transient ischemic attack/mini stroke. Imaging study did not show stroke. Your speech improved. Continue with
physical therapy and speech therapy.
Take aspirin and Plavix for 3 weeks. Take aspirin during lunchtime.
-You were noticed to have infrequent episodes of atrial tachycardia with no hypotension. Please follow-up with your magnetizer.
Diet: As tolerated and Low Fat
Referrals:
Martell Don DO [Active] - in two to three weeks
Christiano Tobias MD [Active] - in one to two weeks
Vito Hill MD [Family Provider] -
Prescriptions:
New
aspirin 81 mg Tablet,Chewable
81 mg PO DAILY Qty: 21 0RF
Continued
clopidogrel [Plavix] 75 mg Tablet
75 mg PO DAILY
donepezil 10 mg tablet
10 mg PO DAILY
omeprazole 40 mg capsule,delayed release(DR/EC)
40 mg PO DAILY
furosemide 20 mg tablet
20 mg PO BID
gabapentin 100 mg capsule
200 mg PO TID
lorazepam 1 mg tablet
1 mg PO BIDPRN PRN (Reason: anxiety)
Patient Comments:
08/17/24: filled #60 tabs on 07/30/24 at [facility]
cyclosporine [Restasis] 0.05 % dropperette
1 drp BOTH EYES BID
mesalamine 0.375 gram capsule,extended release 24hr
0.75 g PO DAILY
Patient Comments:
Prescription is for 4 capsules in the AM; pt reports taking 2 capsules in the AM daily
atorvastatin 40 MG tablet
40 mg PO DAILY
citalopram 20 MG tablet
20 mg PO HS
Discontinued
ciprofloxacin HCl 500 mg tablet
500 mg PO BID
Rx Instructions:
new Rx 08/12/24 x 7 days
Discharge Orders:
Discharge Patient (As Directed); Ordered 08/19/24
Ordered By: Yocasta Gill
Discharge Date and Time
Print Language: TAMAZIGHT
--- NOTE | 2024-08-19 13:16 | CM ---
Reviewed chart, met with patient to obtain information for assessment. Patient's spouse was at bedside. Patient stated that she lives alone in a townhouse with one step to enter. Patient described herself as independent with her ADLs, dressing,
bathing and personal care. 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 She also has a woman who comes in 1x a month to clean. Patient's spouse drives and can get patient to her appointments and shopping.
Patient has a w/c, walker, cane, toilet rails and a grab bar in her shower.
Patient's spouse works department of sociology chair but is home with patient in the mornings and evenings. She has a personal emergency response system as well.
She has been to [facility] in the past but not SNF.
She has had [facility] but is not sure of the agency.
Patient feels that she will be able to return home when cleared for discharge.
Plan: Case management will continue to follow and assist with discharge planning. Home when stable.
== END 2024-08-19 13:54 | disposition home health service (06) | DRG 92 ==
LOC: 3 WEST ACU 15:13
PROVIDERS: ADMITTING PHYSICIAN Internal Medicine; EMERGENCY PHYSICIAN Student in an Organized Health Care Education/Training Program; FAMILY PHYSICIAN Family Medicine; OTHER PHYSICIAN Psychiatry & Neurology Neurology
DX: R47.01 Aphasia (principal); I47.19 Other supraventricular tachycardia; I10 Essential (primary) hypertension; E11.9 Type 2 diabetes mellitus without complications
CPT/HCPCS: 70450; 70496; 70498; 70551; 80048; 80053; 80061; 82607; 82728; 82746; 82962; 83036; 84443; 84484; 85025; 85027; 85610; 85730; 92523; 92610; 93005; 93306; 97163; 97167; 99285; Q9967

== ENCOUNTER → 2024-08-28 08:49 | Outpatient (REF) | payer MEDICARE, SELFPAY | LOC: MRI 08:49 | PROVIDERS: ATTENDING PHYSICIAN Specialist; FAMILY PHYSICIAN Family Medicine | DX: I63.9 Cerebral infarction, unspecified (principal); R47.01 Aphasia; G45.9 Transient cerebral ischemic attack, unspecified | CPT/HCPCS: 70544; 70549; 70551; A9585 ==

== ENCOUNTER 2024-09-02 08:00 | Outpatient (RCR) | payer MEDICARE, SELFPAY | END 2024-09-02 23:59 | disposition home or self-care (01) | LOC: RPT 08:00 | PROVIDERS: ATTENDING PHYSICIAN Family Medicine | DX: I69.398 Other sequelae of cerebral infarction (principal); I69.322 Dysarthria following cerebral infarction (principal); R53.1 Weakness; R47.89 Other speech disturbances; R42 Dizziness and giddiness | CPT/HCPCS: 92523; 97163; 97167 ==

== ENCOUNTER → 2024-09-17 07:51 | Outpatient (REF) | payer MEDICARE, SELFPAY | LOC: RAD 07:51 | PROVIDERS: ATTENDING PHYSICIAN Family Medicine | DX: R60.0 Localized edema (principal); I87.2 Venous insufficiency (chronic) (peripheral) | CPT/HCPCS: 93970 ==

== ENCOUNTER 2024-10-02 08:08 | Outpatient (RCR) | payer MEDICARE, SELFPAY | END 2024-10-02 23:59 | disposition home or self-care (01) | LOC: RPT 08:08 | PROVIDERS: ATTENDING PHYSICIAN Family Medicine | DX: I69.351 Hemiplegia and hemiparesis following cerebral infarction affecting right dominant side (principal); I69.322 Dysarthria following cerebral infarction; R53.1 Weakness; R26.81 Unsteadiness on feet | CPT/HCPCS: 97110; 97112; 97116; 97530; 97535 ==

== ENCOUNTER 2024-10-23 09:07 | Outpatient (RCR) | payer MEDICARE, SELFPAY | END 2024-10-23 10:10 | disposition home or self-care (01) | LOC: RPT 09:07 | PROVIDERS: ATTENDING PHYSICIAN Family Medicine | DX: I69.351 Hemiplegia and hemiparesis following cerebral infarction affecting right dominant side (principal); I69.398 Other sequelae of cerebral infarction (principal); I69.322 Dysarthria following cerebral infarction; Z73.6 Limitation of activities due to disability; R53.1 Weakness; R26.81 Unsteadiness on feet | CPT/HCPCS: 97110; 97112; 97116; 97530 ==

== ENCOUNTER → 2024-10-30 11:58 | Outpatient (REF) | payer MEDICARE, SELFPAY ==
[2024-10-30 13:46] LABS: Glycohemoglobin (HgbA1c) 5.9 % (4.0-5.6)
[2024-10-30 14:50] LABS: ALT (SGPT) 27 U/L (0-35); AST (SGOT) 22 U/L (14-36); Albumin 4.4 g/dl (3.5-5.0); Alkaline Phosphatase 79 U/L (38-126); Blood Urea Nitrogen 14 mg/dl (7-17); Calcium 9.4 mg/dl (8.4-10.2); Carbon Dioxide 29 mmol/L (22-30); Chloride 100 mmol/L (98-107); Glucose 94 mg/dl (70-99); Potassium 3.3 mmol/L (3.5-5.1); Sodium 139 mmol/L (135-145); Total Bilirubin 0.6 mg/dl (0.2-1.3); Total Protein 6.8 g/dl (6.3-8.2); eGFR > 60.00
[2024-10-30 15:06] LABS: TSH 3.62 uIU/ml (0.47-4.68)
== END ==
LOC: REG 11:58
PROVIDERS: ATTENDING PHYSICIAN Internal Medicine Endocrinology, Diabetes & Metabolism; FAMILY PHYSICIAN Family Medicine
DX: M18.0 Bilateral primary osteoarthritis of first carpometacarpal joints (principal); R73.01 Impaired fasting glucose; E04.2 Nontoxic multinodular goiter; M81.0 Age-related osteoporosis without current pathological fracture; R73.03 Prediabetes
CPT/HCPCS: 36415; 80053; 83036; 84443

== ENCOUNTER 2024-12-27 04:47 | Emergency (ER) | payer MEDICARE, SELFPAY ==
[2024-12-27 04:50] VITALS: BP 108/68
[2024-12-27 05:43] LABS: COVID-19 Antigen Negative (Negative)
[2024-12-27 06:05] VITALS: BP 134/74
[2024-12-27] MEDS: NSS 1000 IV (06:15)
--- NOTE | 2024-12-27 06:15 | ED.GENMED ---
History of Present Illness
General
Chief Complaint: Cold/Flu/URI Symptoms
Source: patient and spouse
Exam Limitations: none
Time Seen by Provider: 12/27/24 06:09
Nursing documentation reviewed up to this point in time: agreed with
History of Present Illness
History of Present Illness:
79-year-old female fatigue nausea vomiting diarrhea diagnosed with sinusitis by PCP given clarithromycin followed up start on Levaquin told she had sinusitis, did not get better went to urgent care told she had pneumonia by x-ray switch to
doxycycline fever up to 104 last night,
Past History
Past History
ED Past Medical History: CVA, Hypercholesterolemia, NIDDM, Psychiatric (Anxiety) and Other (Chronic back pain)
ED Past Surgical History: Appendectomy, Bowel resection, Brain (Meningioma with radiation), Cholecystectomy, Gynecological and Orthopedic
Social History
Tobacco: Non-smoker
Alcohol: Occasional
Drug: None
Personal:
Living: with family
Employment: Retired
Family History
Family History: Other (stroke in multiple family members)
Review of Systems
Review of Systems
All Other Systems: Not applicable
Constitutional: Reports fever and fatigue
Respiratory: Reports cough
ABD/GI: Reports nausea and diarrhea
: Reports no symptoms
Musculoskeletal: Reports muscle stiffness
Neurological: Reports weakness
Phy Exam
Physical Exam
Physical Exam:
Physical Exam
General: no apparent distress, not acutely ill
Neck: Lips are slightly dry
Heart: s1/s2 regular rate and rhythm, no murmur. equal radial pulses.
Lungs: Crackles at the base
Abdomen: Not tender
Neuro: alert and oriented. no focal neurological deficits
Skin: no rash
Psychiatric: well kept. interactive and cooperative
Extremities: no edema.
Sepsis
Sepsis Screening
Sepsis Assessment: Sepsis Ruled Out
Sepsis Screen
Sepsis Screen: Sepsis Ruled Out
Date: 12/28/24
Time: 14:40
Course
Orders/Labs/Results
Orders:
Orders
12/27/24 05:02
COVID-19 Antigen Urgent
Source: Nasal Swab
Influenza A+B Rapid Molecular Urgent
JACKIE Source: Nasal Swab
Specimen Description:
12/27/24 06:09
CR Chest - 2 Views Urgent
Comment:
Reason For Exam: sob
12/27/24 06:10
CMP [Comprehensive Metabolic Panel] Urgent
Complete Blood Count/With Diff Urgent
12/27/24 06:15
0.9% Sodium Chloride 1000 ml [Nss] 1,000 ml IV BOLUS
Ondansetron Injectable [Zofran] 4 mg .ROUTE .STK-MED ONE
Ondansetron Injectable [Zofran] 4 mg IV NOW STA
12/27/24 07:03
Electrocardiogram (*1) Urgent
Reason for Study: Abdominal Pain
EKG- Treatment ONCE
12/27/24 09:23
Dexamethasone Sod Phosphate [Decadron] 10 mg IV NOW STA
Ketorolac [Toradol] 30 mg IV NOW STA
12/27/24 09:24
Loperamide [Imodium] 2 mg PO NOW STA
Abnormal Lab Results
12/27/24
06:10
Abs Immat Gran (auto) 0.1 H 10^3/uL
(0-0.05)
Absolute Neuts (auto) 8.5 H 10^3/uL
(1.4-6.5)
Absolute Lymphs (auto) 0.5 L 10^3/uL
(1.2-3.4)
Neutrophils % 88.4 H %
(42.2-75.2)
Lymphocytes % 5.4 L %
(20.5-51.1)
Glucose 129 H mg/dl
(70-99)
Total Protein 6.2 L g/dl
(6.3-8.2)
12/27/24 06:10
12/27/24 06:10
Vital Signs
Initial and Last Documented VS:
Initial Vital Signs
Temp Pulse Resp BP Pulse Ox
98.8 F 80 24 108/68 98
12/27/24 04:50 12/27/24 04:50 12/27/24 04:50 12/27/24 04:50 12/27/24 04:50
Last Documented Vital Signs
Temp Pulse Resp BP Pulse Ox
98.8 F 74 16 114/70 98
12/27/24 04:50 12/27/24 09:33 12/27/24 09:33 12/27/24 09:33 12/27/24 09:33
MDM/Problems Addressed
Differential Diagnosis Includes:
Pneumonia electrolyte abnormality, side effect of antibiotics,
MDM/Problems Addressed:
Fatigue shortness of breath fever diarrhea
Chronic conditions affecting care: HTN and Neurological disorder
Acute Exacerbation and/or Progression of Chronic Illness: HTN and Neurological disorder
*Radiology
Radiology exam reviewed: preliminary read by ED provider
*Pulse Oximetry
Patient hypoxic: no
*Critical Care Note
Total Time (30-74mins, 75-104mins- exclusive of procedures): Not Applicable
Update Note
Update Note:
9 AM update labs are noted chest x-ray noted vital signs are stable here patient feeling better after fluids and antiemetics viral swabs are noted, she has been on several courses of antibiotics perhaps this is causing her diarrhea and fatigue
9:30 AM patient reevaluated states she has joint aches and bodyaches drinking some water x-ray noted formal report pending
ED Attending Note
-
Portions of this chart may have been created with voice recognition software.� Occasional wrong word or��sound alike� substitutions may have occurred due to the inherent limitations of voice recognition software.
Discharge Plan
Departure
Patient Disposition: Home (Routine Discharge)
Date of Disposition: 12/27/24
Time of Disposition: 09:28
Patient with high blood pressure during this ER visit?: No
Condition: Good
Discharge Problem:
Body aches, Ache in joint
Instructions: Diarrhea in teens and adults, Bledsoe Diet
Prescriptions:
New
loperamide [Imodium A-D] 2 mg capsule
2 mg PO Q4H PRN (Reason: loose stool) Qty: 20 0RF
methylprednisolone [Medrol (Michael)] 4 mg tablets,dose pack
See Rx Instructions .ROUTE .COMPLEX Qty: 21 0RF
Rx Instructions:
for 6 days
No Action
clopidogrel [Plavix] 75 mg Tablet
75 mg PO DAILY
donepezil 10 mg tablet
10 mg PO DAILY
omeprazole 40 mg capsule,delayed release(DR/EC)
40 mg PO DAILY
furosemide 20 mg tablet
20 mg PO BID
gabapentin 100 mg capsule
200 mg PO TID
lorazepam 1 mg tablet
1 mg PO BIDPRN PRN (Reason: anxiety)
Patient Comments:
08/17/24: filled #60 tabs on 07/30/24 at [facility]
cyclosporine [Restasis] 0.05 % dropperette
1 drp BOTH EYES BID
mesalamine 0.375 gram capsule,extended release 24hr
0.75 g PO DAILY
Patient Comments:
Prescription is for 4 capsules in the AM; pt reports taking 2 capsules in the AM daily
atorvastatin 40 MG tablet
40 mg PO DAILY
citalopram 20 MG tablet
20 mg PO HS
aspirin 81 mg Tablet,Chewable
81 mg PO DAILY Qty: 21 0RF
Referrals:
Vito Hill MD [Family Provider] -
Interventions
Interventions:
*Risk Screen - Suicide Last Done: 12/27/24 04:50
*General Assessment Last Done: 12/27/24 05:58
*Neglect/Abuse Screening Last Done: 12/27/24 04:50
ED- Fall Risk Assessment Last Done: 12/27/24 06:22
*ED COVID-19 Vaccine History Last Done: 12/27/24 05:58
*Nursing Disposition Last Done: 12/27/24 10:03
BP-Eirgta-Ausszzlnzx Assessment Last Done: 12/27/24 05:58
ED- Pulmonary Assessment Last Done: 12/27/24 05:58
Discharge Date and Time
Discharge Date/Time: 12/27/24 10:03
Print Language: FINNISH
[2024-12-27] MEDS: ZOFRAN 4 MG IV (06:16)
[2024-12-27 06:22] LABS: % Basophils 0.3 % (0-2); % Eosinophils 1.1 % (0-6); % Immature Granulocytes 0.5 % (0-0.5); % Lymphocytes 5.4 % (20.5-51.1); % Monocytes 4.3 % (1.7-9.3); % Neutrophils 88.4 % (42.2-75.2); Absolute Eosinophils 0.1 10^3/uL (0-0.7); Absolute Immature Granulocytes 0.1 10^3/uL (0-0.05); Absolute Lymphocytes 0.5 10^3/uL (1.2-3.4); Absolute Monocytes 0.4 10^3/uL (0.1-0.6); Absolute Neutrophils 8.5 10^3/uL (1.4-6.5); Hematocrit 42.2 % (37.0-47.0); Hemoglobin 14.2 g/dL (12.0-16.0); Mean Corp Hgb Conc. 33.6 g/dL (33.0-37.0); Mean Corpuscular Volume 89.2 fL (81.0-99.0); Mean Platelet Volume 10.2 fL (7.4-10.4); Nucleated Red Blood Cells % 0 %; Platelet Count 194 10^3/uL (130-400); Red Blood Cell Count 4.73 10^6/uL (4.20-5.40); Red Cell Dist. Width 13.8 % (11.5-14.5); White Blood Cell Count 9.6 10^3/uL (4.8-10.8)
[2024-12-27 06:41] LABS: ALT (SGPT) 20 U/L (0-35); AST (SGOT) 25 U/L (14-36); Albumin 4.1 g/dl (3.5-5.0); Alkaline Phosphatase 85 U/L (38-126); Blood Urea Nitrogen 11 mg/dl (7-17); Calcium 8.6 mg/dl (8.4-10.2); Carbon Dioxide 28 mmol/L (22-30); Chloride 105 mmol/L (98-107); Glucose 129 mg/dl (70-99); Potassium 3.8 mmol/L (3.5-5.1); Sodium 142 mmol/L (135-145); Total Bilirubin 1.1 mg/dl (0.2-1.3); Total Protein 6.2 g/dl (6.3-8.2); eGFR > 60.00
[2024-12-27 07:00] VITALS: BP 130/96
[2024-12-27] MEDS: TORADOL 30 MG IV (09:29)
[2024-12-27] MEDS: IMODIUM 2 MG PO (09:29)
[2024-12-27 09:33] VITALS: BP 114/70
== END 2024-12-27 10:03 | disposition home or self-care (01) ==
LOC: EMR 04:47
PROVIDERS: Emergency Medicine; EMERGENCY PHYSICIAN Emergency Medicine; FAMILY PHYSICIAN Family Medicine
DX: R19.7 Diarrhea, unspecified (principal); R11.2 Nausea with vomiting, unspecified; E78.00 Pure hypercholesterolemia, unspecified; E11.9 Type 2 diabetes mellitus without complications; I10 Essential (primary) hypertension; Z86.73 Personal history of transient ischemic attack (TIA), and cerebral infarction without residual deficits; Z90.49 Acquired absence of other specified parts of digestive tract; Z11.52 Encounter for screening for COVID-19
CPT/HCPCS: 99285; 96374; 96375; 71046; 80053; 85025; 87502; 87811; 93005

== ENCOUNTER 2025-01-06 16:26 | Emergency (ER) | payer MEDICARE, SELFPAY ==
[2025-01-06 16:28] VITALS: BP 119/81
--- NOTE | 2025-01-06 16:52 | ED.SKININJ ---
HPI-Injury
General
Chief Complaint: Skin Surface Trauma
Source: patient
Exam Limitations: none
Time Seen by Provider: 01/06/25 16:35
History of Present Illness-Injury
Initial Injury comments:
79-year-old female on Plavix presents with laceration of left index finger she sustained today. She cut herself with a knife making dinner. She was unable to get it stop bleeding at home. No other complaints
Past History
Past History
ED Past Medical History: CVA, Hypercholesterolemia, NIDDM, Psychiatric (Anxiety) and Other (Chronic back pain)
ED Past Surgical History: Appendectomy, Bowel resection, Brain (Meningioma with radiation), Cholecystectomy, Gynecological and Orthopedic
Social History
Tobacco: Non-smoker
Alcohol: Occasional
Drug: None
Personal:
Living: with family
Employment: Retired
Family History
Family History: Other (stroke in multiple family members)
Phy Exam
Physical Exam
Physical Exam:
General: Well-appearing female no acute distress
Skin: 1 cm superficial laceration distal volar and radial aspect left index finger mild current bleeding. No tendon involvement
Musculoskeletal exam: Full range of motion left index
Course
Vital Signs
Initial and Last Documented VS:
Initial Vital Signs
Temp Pulse Resp BP Pulse Ox
97.7 F 78 18 119/81 97
01/06/25 16:28 01/06/25 16:28 01/06/25 16:28 01/06/25 16:28 01/06/25 16:28
Last Documented Vital Signs
Temp Pulse Resp BP Pulse Ox
97.7 F 78 18 119/81 97
01/06/25 16:28 01/06/25 16:28 01/06/25 16:28 01/06/25 16:28 01/06/25 16:28
MDM/Problems Addressed
Differential Diagnosis Includes:
Superficial laceration left index finger; stop bleeding on its own. Given the Plavix and the continued bleeding, the finger was anesthetized in a local fashion with 1% lidocaine and irrigated with saline and closed with 5-0 Prolene sutures. 2
sutures were required in a simple interrupted fashion to provide hemostasis. A dressing was applied. Stable for discharge
*Critical Care Note
Total Time (30-74mins, 75-104mins- exclusive of procedures): Not Applicable
ED Attending Note
-
Portions of this chart may have been created with voice recognition software.� Occasional wrong word or��sound alike� substitutions may have occurred due to the inherent limitations of voice recognition software.
Discharge Plan
Departure
Patient Disposition: Home (Routine Discharge)
Date of Disposition: 01/06/25
Time of Disposition: 16:54
Patient with high blood pressure during this ER visit?: No
Discharge Problem:
Laceration
Instructions: Laceration Repair With Stitches (DC)
Prescriptions:
No Action
clopidogrel [Plavix] 75 mg Tablet
75 mg PO DAILY
donepezil 10 mg tablet
10 mg PO DAILY
omeprazole 40 mg capsule,delayed release(DR/EC)
40 mg PO DAILY
furosemide 20 mg tablet
20 mg PO BID
gabapentin 100 mg capsule
200 mg PO TID
lorazepam 1 mg tablet
1 mg PO BIDPRN PRN (Reason: anxiety)
Patient Comments:
08/17/24: filled #60 tabs on 07/30/24 at [facility]
cyclosporine [Restasis] 0.05 % dropperette
1 drp BOTH EYES BID
mesalamine 0.375 gram capsule,extended release 24hr
0.75 g PO DAILY
Patient Comments:
Prescription is for 4 capsules in the AM; pt reports taking 2 capsules in the AM daily
atorvastatin 40 MG tablet
40 mg PO DAILY
citalopram 20 MG tablet
20 mg PO HS
aspirin 81 mg Tablet,Chewable
81 mg PO DAILY Qty: 21 0RF
loperamide [Imodium A-D] 2 mg capsule
2 mg PO Q4H PRN (Reason: loose stool) Qty: 20 0RF
methylprednisolone [Medrol (Michael)] 4 mg tablets,dose pack
See Rx Instructions .ROUTE .COMPLEX Qty: 21 0RF
Rx Instructions:
for 6 days
Activity Restrictions/Additional Instructions:
Keep clean. Pat it dry if it gets wet. Have sutures removed in 10 days. Replace current dressing tomorrow with a Band-Aid if needed
Interventions
Interventions:
*Risk Screen - Suicide Last Done: 01/06/25 16:28
*Neglect/Abuse Screening Last Done: 01/06/25 16:28
*ED COVID-19 Vaccine History Last Done: 01/06/25 16:28
Discharge Date and Time
Print Language: BOLIVIAN
== END 2025-01-06 17:25 | disposition home or self-care (01) ==
LOC: EMR 16:26
PROVIDERS: EMERGENCY PHYSICIAN Emergency Medicine; FAMILY PHYSICIAN Family Medicine
DX: S61.211A Laceration without foreign body of left index finger without damage to nail, initial encounter (principal); W26.0XXA Contact with knife, initial encounter; E78.00 Pure hypercholesterolemia, unspecified; E11.9 Type 2 diabetes mellitus without complications; F41.9 Anxiety disorder, unspecified; Z79.02 Long term (current) use of antithrombotics/antiplatelets; Z82.3 Family history of stroke; Z86.73 Personal history of transient ischemic attack (TIA), and cerebral infarction without residual deficits; Z90.49 Acquired absence of other specified parts of digestive tract
CPT/HCPCS: 99283; 12001

== ENCOUNTER → 2025-03-16 13:21 | Outpatient (REF) | payer MEDICARE, SELFPAY ==
[2025-03-16 14:28] LABS: ALT (SGPT) 24 U/L (0-35); AST (SGOT) 22 U/L (14-36); Albumin 3.4 g/dl (3.5-5.0); Alkaline Phosphatase 62 U/L (38-126); Blood Urea Nitrogen 10 mg/dl (7-17); Calcium 9.1 mg/dl (8.4-10.2); Carbon Dioxide 29 mmol/L (22-30); Chloride 109 mmol/L (98-107); Glucose 84 mg/dl (70-99); Potassium 3.6 mmol/L (3.5-5.1); Sodium 141 mmol/L (135-145); Total Bilirubin 0.8 mg/dl (0.2-1.3); Total Protein 5.8 g/dl (6.3-8.2); eGFR > 60.00
[2025-03-17 09:05] LABS: Glycohemoglobin (HgbA1c) 5.9 % (4.0-5.6)
== END ==
LOC: REG 13:21
PROVIDERS: ATTENDING PHYSICIAN Internal Medicine Endocrinology, Diabetes & Metabolism; FAMILY PHYSICIAN Family Medicine
DX: M81.0 Age-related osteoporosis without current pathological fracture (principal); R73.03 Prediabetes
CPT/HCPCS: 36415; 80053; 83036

== ENCOUNTER → 2025-04-21 15:58 | Outpatient (REF) | payer MEDICARE, SELFPAY | LOC: HWRCS 15:58 | PROVIDERS: ATTENDING PHYSICIAN Internal Medicine Interventional Cardiology; FAMILY PHYSICIAN Family Medicine | DX: G45.9 Transient cerebral ischemic attack, unspecified (principal); R00.2 Palpitations; I47.19 Other supraventricular tachycardia; R07.9 Chest pain, unspecified; R06.09 Other forms of dyspnea | CPT/HCPCS: 93306 ==

== ENCOUNTER → 2025-04-26 09:32 | Outpatient (REF) | payer MEDICARE, SELFPAY | LOC: RAD 09:32 | PROVIDERS: ATTENDING PHYSICIAN Internal Medicine Interventional Cardiology; FAMILY PHYSICIAN Family Medicine | DX: G45.9 Transient cerebral ischemic attack, unspecified (principal) | CPT/HCPCS: 93880 ==

== ENCOUNTER → 2025-05-10 07:41 | Outpatient (REF) | payer MEDICARE, SELFPAY | LOC: RCS 07:41 | PROVIDERS: ATTENDING PHYSICIAN Internal Medicine Interventional Cardiology; FAMILY PHYSICIAN Family Medicine | DX: R06.09 Other forms of dyspnea (principal); R07.9 Chest pain, unspecified; I47.19 Other supraventricular tachycardia; R00.2 Palpitations; G45.9 Transient cerebral ischemic attack, unspecified | CPT/HCPCS: 78452; 93017; A9500; J2785 ==

== ENCOUNTER 2025-05-17 09:04 | Day surgery (SDC) | payer MEDICARE, SELFPAY ==
[2025-05-17] VITALS (17 sets, daily range): BP systolic 95–127; BP diastolic 48–93; BMI 25.0
[2025-05-17 09:38] LABS: Hematocrit 38.8 % (37.0-47.0); Hemoglobin 13.5 g/dL (12.0-16.0); Mean Corp Hgb Conc. 34.8 g/dL (33.0-37.0); Mean Corpuscular Volume 86.4 fL (81.0-99.0); Platelet Count 269 10^3/uL (130-400); Red Cell Dist. Width 12.8 % (11.5-14.5)
[2025-05-17 09:50] LABS: Blood Urea Nitrogen 17 mg/dl (7-17); Calcium 9.7 mg/dl (8.4-10.2); Carbon Dioxide 30 mmol/L (22-30); Chloride 106 mmol/L (98-107); Estimated Creatinine Clearance 48 ml/min; Glucose 110 mg/dl (70-99); Potassium 3.2 mmol/L (3.5-5.1); Sodium 142 mmol/L (135-145); eGFR > 60.00
[2025-05-17] MEDS: LOW STRENGTH ASPIRIN 324 MG PO (09:54)
[2025-05-17] MEDS: NSS 174 ML IV (10:13)
[2025-05-17] MEDS: NSS 1000 IV (13:05)
[2025-05-17] MEDS: KCL 40 MEQ PO (13:58)
--- NOTE | 2025-05-17 14:08 | PTCARENOTE ---
Vital signs documented prior to 1332 today are done by another user. This user is unable to verify vital signs before 1332.
--- NOTE | 2025-05-17 14:36 | ITS.CL.CATH ---
[facility] Attendant - Catheterization
Cardiac Catheterization
Procedure Report:
LEFT HEART CATHETERIZATION
Date of Procedure: May 17, 2025
Referring: Guerita Minaya MD
PROCEDURES:
1. Left heart catheterization, coronary angiogram.
2. Moderate sedation.
INDICATION: Abnormal stress test
ACCESS: Right radial artery, 6Fr. sheath, under US guidance.
HEMODYNAMICS : (mmHg)
AO (s/d) : 99/70
LVEDP : 13
No significant gradient across the aortic valve to suggest aortic stenosis.
CORONARY FINDINGS
Dominance: Right
Left Main Trunk (LMT): Medium caliber short vessel that gives rise to the LAD and LCx branches and is free of angiographic disease.
Left Anterior Descending Artery (LAD): Medium caliber vessel that gives off 2 major diagonal branches as it courses along the anterior inter-ventricular groove before wrapping around the cardiac apex. There is mild diffuse atherosclerotic plaque.
Left Circumflex Artery (LCx): Large caliber vessel that gives off 2 major obtuse marginal (OM) branches as it courses along the atrio-ventricular (AV) groove. Ostial left circumflex has a 30 to 40% stenosis. Otherwise there is minimal luminal
irregularities.
Right Coronary Artery (RCA): Medium caliber dominant vessel that gives rise to the posterior descending artery (RPDA) and postero-lateral ventricular (RPLV) branches distally. The RCA and its branches are free of angiographic disease.
SEDATION: 27 minutes of procedural sedation was utilized. IV Midazolam and IV Fentanyl were administered. An independent medical scientific liaison was present to assist with and help manage the patient's level of consciousness and physiologic status.
RADIATION SUMMARY: Fluoro Time (min): 4.1, Dose (mGy): 236.11, DAP (Gy.cm2) : 14.7
Closure Device: There were no immediate intra-procedural complications. The sheath was pulled in the laborer drying department and a vascular-band applied to the right wrist for radial artery hemostasis using the patent hemostasis technique.
CONCLUSIONS
1. No obstructive CAD.
2. Normal LVEDP.
RECOMMENDATIONS
1. Wean radial band per protocol. Monitor right hand perfusion and for bleeding from the radial site following removal of the vascular-band following trans-radial access.
2. Continue aggressive medical therapy and risk factor modification for secondary CAD prevention.
3. Hydrate with normal saline to mitigate the risk of contrast-induced acute kidney injury.
4. Follow-up with outpatient cardiology. Okay to hold Plavix for 5 days prior to scheduled elective knee replacement surgery on May 26, 2025. Continue daily baby aspirin.
5. Continue high intensity statin. Low-dose beta-chau for intermittent episodes of paroxysmal atrial tachycardia.
Guerita Minaya MD, FACC, [facility]
== END 2025-05-17 15:45 | disposition home or self-care (01) ==
LOC: CATH 09:04
PROVIDERS: ATTENDING PHYSICIAN Internal Medicine Interventional Cardiology; FAMILY PHYSICIAN Family Medicine
DX: I25.10 Atherosclerotic heart disease of native coronary artery without angina pectoris (principal); I47.19 Other supraventricular tachycardia; R94.39 Abnormal result of other cardiovascular function study; M17.11 Unilateral primary osteoarthritis, right knee; E78.5 Hyperlipidemia, unspecified; F32.A Depression, unspecified; F41.9 Anxiety disorder, unspecified; G25.0 Essential tremor; G89.18 Other acute postprocedural pain; I69.354 Hemiplegia and hemiparesis following cerebral infarction affecting left non-dominant side; I49.3 Ventricular premature depolarization; K58.9 Irritable bowel syndrome, unspecified; M81.0 Age-related osteoporosis without current pathological fracture; Z79.02 Long term (current) use of antithrombotics/antiplatelets; Z79.82 Long term (current) use of aspirin; Z79.899 Other long term (current) drug therapy; Z86.0100 Personal history of colon polyps, unspecified; Z87.891 Personal history of nicotine dependence; Z88.1 Allergy status to other antibiotic agents; Z88.2 Allergy status to sulfonamides; Z88.5 Allergy status to narcotic agent; Z90.49 Acquired absence of other specified parts of digestive tract; Z90.710 Acquired absence of both cervix and uterus; Z90.722 Acquired absence of ovaries, bilateral
CPT/HCPCS: 99152; 99153; 80048; 85027; 93458; C1769; C1894; Q9967

== ENCOUNTER → 2025-05-24 08:54 | Outpatient (REF) | payer MEDICARE, SELFPAY ==
[2025-05-24 10:06] LABS: Blood Urea Nitrogen 11 mg/dl (7-17); Calcium 9.4 mg/dl (8.4-10.2); Carbon Dioxide 31 mmol/L (22-30); Chloride 104 mmol/L (98-107); Glucose 89 mg/dl (70-99); Potassium 3.6 mmol/L (3.5-5.1); Sodium 139 mmol/L (135-145); eGFR > 60.00
== END ==
LOC: REG 08:54
PROVIDERS: ATTENDING PHYSICIAN Internal Medicine Interventional Cardiology
DX: E87.6 Hypokalemia (principal)
CPT/HCPCS: 36415; 80048

== ENCOUNTER 2025-05-26 07:13 | Inpatient (IN) | payer MEDICARE, SELFPAY ==
--- NOTE | 2025-03-24 12:32 | CM ---
CM reviewed medical records. CM confirmed demographics. Patient lives independently with . Patient uses a cane and walker. Patient stated that she relies on a wheelchair during long 'walking trips'. Patient has a history of Acute Rehab at
[facility]. Patient has had home care with [facility] but she would prefer [facility] if needed.
CM encouraged patient to make outpatient PT/OT appointment with Outpatient PT.
Patient is active with her PCP Dr. Hill. Patient uses [facility].
CM discussed hydration and bowel regiment pre-operatively.
PLAN: Outpatient PT with Outpatient Physical Therapy
--- NOTE | 2025-04-19 09:58 | PTCARENOTE ---
Patient stated she will need to reschedule and she has left message at [facility] for Janine.
After seeing cardiology 04/16/25 she was not cleared and will need ECHO(04/21) & Stress Test(05/10).
Patient will return to see Dr Minaya after studies are completed for cardiac clearance at that time.
[2025-05-14 11:11] LABS: Hematocrit 38.0 % (37.0-47.0); Hemoglobin 13.0 g/dL (12.0-16.0); Mean Corp Hgb Conc. 34.2 g/dL (33.0-37.0); Mean Corpuscular Volume 88.6 fL (81.0-99.0); Platelet Count 283 10^3/uL (130-400); Red Cell Dist. Width 13.1 % (11.5-14.5)
[2025-05-14 11:38] LABS: ALT (SGPT) 56 U/L (0-35); AST (SGOT) 22 U/L (14-36); Albumin 3.8 g/dl (3.5-5.0); Alkaline Phosphatase 135 U/L (38-126); Blood Urea Nitrogen 15 mg/dl (7-17); Calcium 9.0 mg/dl (8.4-10.2); Carbon Dioxide 29 mmol/L (22-30); Chloride 104 mmol/L (98-107); Glucose 87 mg/dl (70-99); Potassium 3.4 mmol/L (3.5-5.1); Sodium 141 mmol/L (135-145); Total Protein 6.3 g/dl (6.3-8.2); eGFR > 60.00
[2025-05-14 12:09] LABS: Glycohemoglobin (HgbA1c) 5.8 % (4.0-5.6)
[2025-05-14 13:58] VITALS: BMI 24.4
[2025-05-14 14:13] VITALS: BMI 24.4
[2025-05-26] VITALS (30 sets, daily range): BP systolic 84–131; BP diastolic 35–67; O2SAT 96; BMI 24.4
[2025-05-26] MEDS: TYLENOL 650 MG PO (08:03)
[2025-05-26] MEDS: NORMOSOL-R/PLASMALYTE-A 1000 IV ×2 (08:05→16:53)
[2025-05-26] MEDS: EMEND 40 MG PO (08:18)
[2025-05-26] MEDS: MOBIC 15 MG PO (09:00)
[2025-05-26] MEDS: ROXICODONE 5 MG PO (11:23)
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
[2025-05-26] MEDS: LASIX PO (13:00)
[2025-05-26] MEDS: SUBLIMAZE 25 MCG IV (13:19)
[2025-05-26] MEDS: ROXICODONE 7.5 MG PO ×2 (16:52→21:02)
[2025-05-26] MEDS: ANCEF 5 IV (16:53)
[2025-05-26] MEDS: LIPITOR 40 MG PO (16:53)
[2025-05-26] MEDS: PROTONIX 40 MG PO (16:53)
[2025-05-26] MEDS: ARICEPT 10 MG PO (16:56)
[2025-05-26] MEDS: KCL PO (16:57)
[2025-05-26] MEDS: TYLENOL PO (16:57)
[2025-05-26] MEDS: LOW STRENGTH ASPIRIN 81 MG PO (20:51)
[2025-05-26] MEDS: BACTROBAN 2% OINTMENT 1 APPLIC NASAL (21:01)
[2025-05-26] MEDS: CELEXA 20 MG PO (21:02)
[2025-05-26] MEDS: COLACE PO (21:06)
[2025-05-26] MEDS: ATIVAN 1 MG PO (21:41)
[2025-05-27] VITALS (9 sets, daily range): BP systolic 81–104; BP diastolic 42–65; PULSE 60–70; O2SAT 90–96; BMI 24.4; BMI 26.1; BMI 26.2
[2025-05-27] MEDS: ANCEF 5 IV (01:18)
[2025-05-27] MEDS: TYLENOL PO ×2 (01:33→17:19)
[2025-05-27] MEDS: TYLENOL 650 MG PO ×2 (05:03→16:00)
[2025-05-27] MEDS: ROXICODONE 7.5 MG PO ×3 (05:04→22:02)
[2025-05-27] MEDS: LASIX 40 MG PO (09:51)
[2025-05-27] MEDS: ARICEPT 10 MG PO (09:51)
[2025-05-27] MEDS: LIPITOR 40 MG PO (09:52)
[2025-05-27] MEDS: COLACE 100 MG PO ×2 (09:52→21:49)
[2025-05-27] MEDS: LOW STRENGTH ASPIRIN 81 MG PO ×2 (09:52→21:50)
[2025-05-27] MEDS: PROTONIX 40 MG PO (09:52)
[2025-05-27] MEDS: BACTROBAN 2% OINTMENT 1 APPLIC NASAL ×2 (09:54→21:49)
[2025-05-27] MEDS: ROXICODONE 5 MG PO (10:02)
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
[2025-05-27 12:38] LABS: Blood Urea Nitrogen 16 mg/dl (7-17); Calcium 8.2 mg/dl (8.4-10.2); Carbon Dioxide 31 mmol/L (22-30); Chloride 101 mmol/L (98-107); Estimated Creatinine Clearance 66 ml/min; Glucose 143 mg/dl (70-99); Potassium 3.7 mmol/L (3.5-5.1); Sodium 136 mmol/L (135-145); eGFR > 60.00
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
[2025-05-27] MEDS: LIDOCAINE 4% PATCH 2 PATCH TOPICAL (13:26)
[2025-05-27] MEDS: KCL 20 MEQ PO (13:27)
[2025-05-27] MEDS: LASIX 20 MG PO (13:28)
[2025-05-27 14:49] LABS: Hepatitis C Antibody Negative (Negative)
[2025-05-27] MEDS: CELEXA 20 MG PO (21:50)
[2025-05-27] MEDS: ATIVAN 1 MG PO (22:02)
[2025-05-28] VITALS (7 sets, daily range): BP systolic 90–115; BP diastolic 44–66; PULSE 69–78; O2SAT 89–95; BMI 26.1
[2025-05-28] MEDS: TYLENOL PO ×2 (00:34→12:07)
[2025-05-28] MEDS: LIPITOR 40 MG PO (07:44)
[2025-05-28] MEDS: TYLENOL 650 MG PO (07:44)
[2025-05-28] MEDS: LASIX 40 MG PO (07:44)
[2025-05-28] MEDS: PROTONIX 40 MG PO (07:45)
[2025-05-28] MEDS: LOW STRENGTH ASPIRIN 81 MG PO (07:45)
[2025-05-28] MEDS: COLACE 100 MG PO (07:45)
[2025-05-28] MEDS: ARICEPT 10 MG PO (07:45)
[2025-05-28] MEDS: ROXICODONE 7.5 MG PO (07:47)
[2025-05-28] MEDS: LIDOCAINE 4% PATCH 2 PATCH TOPICAL (07:49)
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
[2025-05-28] MEDS: PLAVIX 75 MG PO (10:35)
[2025-05-28] MEDS: ROXICODONE 5 MG PO (12:13)
[2025-05-28] MEDS: KCL 20 MEQ PO ×2 (12:15→14:18)
[2025-05-28] MEDS: LASIX PO (12:15)
[2025-05-28 12:19] LABS: Blood Urea Nitrogen 23 mg/dl (7-17); Calcium 8.6 mg/dl (8.4-10.2); Carbon Dioxide 32 mmol/L (22-30); Chloride 98 mmol/L (98-107); Estimated Creatinine Clearance 49 ml/min; Glucose 112 mg/dl (70-99); Potassium 3.4 mmol/L (3.5-5.1); Sodium 135 mmol/L (135-145); eGFR > 60.00
[2025-05-28] MEDS: LASIX 20 MG IV (12:39)
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
[2025-05-28] MEDS: COMPAZINE 5 MG IV (13:09)
--- NOTE | 2025-05-28 14:40 | CM ---
Addendum entered by Noemi Rodriguez RN 05/28/25 15:24:
CM gave bedside RN written script for BMP. Patient advised that home care with draw labs.
Original Note:
CM reviewed medical records. Patient is medically ready for discharge. CM referred patient to VN via business liaison officer. CM confirmed that patient is able to have her labs drawn by home care. CM requested a written script for labs.
PLAN: home with VN.
--- NOTE | 2025-05-28 14:59 | VNURNOTE ---
Home Health Liaison met with patient and spouse Bill at bedside to discuss [facility] nurse/therapy, visits, schedule and homebound status. Patient is agreeable and understands that visits at home will be 2-3 x per week to assess and teach medical
management. patient confirms that she has a scale at home. Patient appeared anxious, emotional support provided. Patient is aware that [facility] will contact them for start of care in 1-2 days after discharge from .
[facility] referral completed in [facility].
--- NOTE | 2025-05-28 15:04 | W.DS.TRANS ---
DC Summary - Nursing Program Coordinator
-
Discharge Instructions:
Sleep Apnea Risk Low
Discharge Diagnosis/Procedures R knee OA s/p R TKA w/ Dr Hull 05/26/25
Diet Other diet
Additional Diets Diabetic carb controlled diet x1 week for wound
healing/infection prevention.
Adequate hydration, minimize opioids, and wear
TEDs stockings to prevent low blood pressure/
dizziness.
Activity As tolerated,With Walker
Driving Restrictions Not until seen by your Dr
Bathing Restrictions OK to Shower
Blood Work BMP on 06/04/2025, with results to
Cardiology.
Other Services PT,VN
Wound Care Dressing to be removed 1 week post-surgery.
Specialty Instructions Weigh Daily
Instructions: *[facility] Heart Failure Instructions
Stand-Alone Forms: Total Hip/Knee Replacement D/C
Changes to Home Medications: Yes
Discharge Medications:
DC Medications w/original date entered in [facility]
clopidogrel 75 mg tablet (Plavix) 75 mg PO DAILY Blood Clot Prevention/Tx 01/10/23
atorvastatin 40 mg tablet 40 mg PO DAILY High Cholesterol 08/17/24
citalopram 20 mg tablet 20 mg PO HS depression/anxiety 08/17/24
donepezil 10 mg tablet 10 mg PO DAILY memory/cognition 08/17/24
omeprazole 40 mg capsule,delayed release 40 mg PO DAILY Gastrointestinal Issue 08/17/24
lactase 3,000 unit tablet (Lactaid) 3,000 unit PO AC PRN lactose issues 05/13/25
metoprolol succinate 25 mg tablet,extended release 24 hr (Toprol XL) 25 mg PO HS Heart Disease/Condition 05/25/25
potassium chloride 20 mEq tablet,extended release(part/cryst) (Klor-Con M) 20 meq PO DAILY@1200 Supplement 05/25/25
acetaminophen 325 mg tablet 650 mg (2 x 325 mg) PO Q6H #60 tabs 05/27/25
aspirin 81 mg tablet,delayed release 81 mg PO BID Blood Clot Prevention/Tx #60 tabs 05/27/25
docusate sodium 100 mg capsule 100 mg PO BID #30 caps 05/27/25
lidocaine 4 % topical patch 2 patch topical DAILY #30 ea 05/27/25
loperamide 2 mg capsule 2 mg PO Q6HPRN PRN diarrhea #30 caps 05/27/25
lorazepam 1 mg tablet 1 mg PO HSPRN PRN insomnia #1 tab 05/27/25
oxycodone 5 mg tablet 5 mg PO Q6H PRN moderate-severe pain #30 tabs 05/27/25
prochlorperazine maleate 5 mg tablet 5 mg PO Q8HPRN PRN nausea/vomiting #30 tabs 05/27/25
sennosides 8.6 mg tablet (Niurka-aria) 17.2 mg (2 x 8.6 mg) PO BID PRN constipation #30 tabs 05/27/25
furosemide 20 mg tablet 40 mg (2 x 20 mg) PO BID Fluid Retention/Swelling #1 tab 05/28/25
Home Medication Changes
acetaminophen 325 mg tablet 650 mg (2 x 325 mg) PO Q6H #60 tabs 05/27/25
aspirin 81 mg tablet,delayed release 81 mg PO BID Blood Clot Prevention/Tx #60 tabs 05/27/25
docusate sodium 100 mg capsule 100 mg PO BID #30 caps 05/27/25
lidocaine 4 % topical patch 2 patch topical DAILY #30 ea 05/27/25
lorazepam 1 mg tablet 1 mg PO HSPRN PRN insomnia #1 tab 05/27/25
oxycodone 5 mg tablet 5 mg PO Q6H PRN moderate-severe pain #30 tabs 05/27/25
prochlorperazine maleate 5 mg tablet 5 mg PO Q8HPRN PRN nausea/vomiting #30 tabs 05/27/25
sennosides 8.6 mg tablet (Niurka-aria) 17.2 mg (2 x 8.6 mg) PO BID PRN constipation #30 tabs 05/27/25
furosemide 20 mg tablet 40 mg (2 x 20 mg) PO BID Fluid Retention/Swelling #1 tab 05/28/25
Pending Results: No
[2025-05-28] MEDS: ROXICODONE 2.5 MG PO (16:19)
== END 2025-05-28 16:36 | disposition home health service (06) | DRG 469 ==
LOC: 2 SOUTH 07:13
PROVIDERS: Physician Assistant; ADMITTING PHYSICIAN Orthopaedic Surgery; FAMILY PHYSICIAN Family Medicine; REFERRING PHYSICIAN Internal Medicine Interventional Cardiology
PROC: 0SRC0J9 Replacement of Right Knee Joint with Synthetic Substitute, Cemented, Open Approach (ICD-10-PCS; 2025-05-26)
DX: M17.11 Unilateral primary osteoarthritis, right knee (principal); I50.33 Acute on chronic diastolic (congestive) heart failure; I47.19 Other supraventricular tachycardia; K86.2 Cyst of pancreas; I69.354 Hemiplegia and hemiparesis following cerebral infarction affecting left non-dominant side; E78.5 Hyperlipidemia, unspecified; I25.10 Atherosclerotic heart disease of native coronary artery without angina pectoris; I65.23 Occlusion and stenosis of bilateral carotid arteries; I49.3 Ventricular premature depolarization; K21.9 Gastro-esophageal reflux disease without esophagitis; K44.9 Diaphragmatic hernia without obstruction or gangrene; R13.10 Dysphagia, unspecified; N28.1 Cyst of kidney, acquired; G25.0 Essential tremor; R41.89 Other symptoms and signs involving cognitive functions and awareness; D32.0 Benign neoplasm of cerebral meninges; E21.3 Hyperparathyroidism, unspecified; D50.9 Iron deficiency anemia, unspecified; M81.0 Age-related osteoporosis without current pathological fracture; F32.A Depression, unspecified; F41.9 Anxiety disorder, unspecified; G47.00 Insomnia, unspecified; E87.6 Hypokalemia; K58.0 Irritable bowel syndrome with diarrhea; R74.01 Elevation of levels of liver transaminase levels; R09.02 Hypoxemia; E73.9 Lactose intolerance, unspecified; I49.1 Atrial premature depolarization; R73.03 Prediabetes; Z90.49 Acquired absence of other specified parts of digestive tract; Z86.0100 Personal history of colon polyps, unspecified; Z87.19 Personal history of other diseases of the digestive system; Z87.891 Personal history of nicotine dependence; Z92.3 Personal history of irradiation; Z90.710 Acquired absence of both cervix and uterus; Z79.02 Long term (current) use of antithrombotics/antiplatelets; Z98.1 Arthrodesis status; Z91.81 History of falling
CPT/HCPCS: 36415; 71046; 73560; 80048; 80053; 83036; 83880; 85027; 86803; 87070; 93005; 97110; 97116; 97162; 97166; 97530; 97535; C1713; C1776

== ENCOUNTER → 2025-06-04 13:27 | Outpatient (REF) | payer MEDICARE, SELFPAY ==
[2025-06-04 15:15] LABS: Blood Urea Nitrogen 16 mg/dl (7-17); Calcium 9.0 mg/dl (8.4-10.2); Carbon Dioxide 29 mmol/L (22-30); Chloride 93 mmol/L (98-107); Glucose 107 mg/dl (70-99); Potassium 3.0 mmol/L (3.5-5.1); Sodium 130 mmol/L (135-145); eGFR > 60.00
== END ==
LOC: CLAB 13:27
PROVIDERS: ATTENDING PHYSICIAN Internal Medicine Interventional Cardiology; FAMILY PHYSICIAN Family Medicine
DX: I50.9 Heart failure, unspecified (principal)
CPT/HCPCS: 36415; 80048

== ENCOUNTER → 2025-06-24 11:26 | Outpatient (REF) | payer MEDICARE, SELFPAY | LOC: WDC 11:26 | PROVIDERS: ATTENDING PHYSICIAN Family Medicine | DX: Z12.31 Encounter for screening mammogram for malignant neoplasm of breast (principal) | CPT/HCPCS: 77063; 77067 ==

== ENCOUNTER → 2025-06-29 12:49 | Outpatient (REF) | payer MEDICARE, SELFPAY ==
[2025-06-29 15:03] LABS: Blood Urea Nitrogen 23 mg/dl (7-17); Calcium 9.4 mg/dl (8.4-10.2); Carbon Dioxide 30 mmol/L (22-30); Chloride 100 mmol/L (98-107); Glucose 102 mg/dl (70-99); Potassium 3.2 mmol/L (3.5-5.1); Sodium 138 mmol/L (135-145); eGFR > 60.00
== END ==
LOC: REG 12:49
PROVIDERS: ATTENDING PHYSICIAN Internal Medicine Interventional Cardiology; FAMILY PHYSICIAN Family Medicine
DX: Z86.79 Personal history of other diseases of the circulatory system (principal); I47.19 Other supraventricular tachycardia
CPT/HCPCS: 36415; 80048

== ENCOUNTER 2025-07-02 13:49 | Outpatient (RCR) | payer MEDICARE, SELFPAY | END 2025-07-02 23:59 | disposition home or self-care (01) | LOC: RPT 13:49 | PROVIDERS: ATTENDING PHYSICIAN Orthopaedic Surgery; FAMILY PHYSICIAN Family Medicine | DX: Z47.1 Aftercare following joint replacement surgery (principal); R26.89 Other abnormalities of gait and mobility; Z73.6 Limitation of activities due to disability; R26.2 Difficulty in walking, not elsewhere classified; M62.81 Muscle weakness (generalized); M25.561 Pain in right knee; Z96.651 Presence of right artificial knee joint | CPT/HCPCS: 97110; 97162 ==

== ENCOUNTER 2025-07-23 09:15 | Outpatient (RCR) | payer MEDICARE, SELFPAY | END 2025-07-23 23:59 | disposition home or self-care (01) | LOC: RPT 09:15 | PROVIDERS: ATTENDING PHYSICIAN Orthopaedic Surgery; FAMILY PHYSICIAN Family Medicine | DX: Z47.1 Aftercare following joint replacement surgery (principal); R26.89 Other abnormalities of gait and mobility; R26.2 Difficulty in walking, not elsewhere classified; M62.81 Muscle weakness (generalized); Z73.6 Limitation of activities due to disability; M25.561 Pain in right knee; Z96.651 Presence of right artificial knee joint | CPT/HCPCS: 97110; 97116; 97530 ==

== ENCOUNTER → 2025-08-12 12:51 | Outpatient (REF) | payer MEDICARE, SELFPAY | LOC: WDC 12:51 | PROVIDERS: ATTENDING PHYSICIAN Family Medicine; FAMILY PHYSICIAN Family Medicine | DX: R92.30 Dense breasts, unspecified (principal) | CPT/HCPCS: 76641 ==

== ENCOUNTER → 2025-09-08 07:08 | Outpatient (REF) | payer MEDICARE, SELFPAY | LOC: RAD 07:08 | PROVIDERS: ATTENDING PHYSICIAN Internal Medicine; FAMILY PHYSICIAN Family Medicine | DX: J06.9 Acute upper respiratory infection, unspecified (principal) | CPT/HCPCS: 71046 ==

== ENCOUNTER → 2025-10-08 08:37 | Outpatient (REF) | payer MEDICARE, SELFPAY | LOC: PAVMRI 08:37 | PROVIDERS: ATTENDING PHYSICIAN Nurse Practitioner; FAMILY PHYSICIAN Family Medicine | DX: K86.2 Cyst of pancreas (principal) | CPT/HCPCS: 74183; A9575 ==